=== PATIENT | female | born 1930 | race Caucasian/White ===

== ENCOUNTER 2016-11-20 11:17 | Inpatient (IN) | payer MEDICARE ==
[~2016-11-20] VITALS: Ht 154.9 cm; Wt 82.1 kg
[~2016-11-20 11:17] MED LIST: ASPI-482 PO; BUPR150T11 PO; CHOL500050 PO; DONE10TA34 PO; DOXE10CA PO; FENO160T PO; FERR325T72 PO; GABA-586 PO; HYDR-2762 PO; LOSA100T6 PO; OMEG500C PO; OMEP20CA5 PO; PARO20TA55 PO; TRIA1TAB2 PO
[2016-11-20 12:00] VITALS: BP 144/36
[2016-11-20] MEDS ORDERED: POTA10CA PO (12:24)
[2016-11-20] MEDS ORDERED: FURO40TA4 PO (12:24)
[2016-11-20] MEDS ORDERED: HYDROCODONE/APAP 7.5/325MG TABLET. PO PRN (13:00)
[2016-11-20] MEDS: TRIAMTERENE/HCTZ 37.5/25MG TABLET. PO SCH (13:30)
[2016-11-20] MEDS: POTASSIUM CHLORIDE 10 MEQ TABLET.ER. PO SCH (13:30)
[2016-11-20] MEDS: ASPIRIN ENTERIC COATED 81 MG TABLET.DR. PO SCH (13:30)
[2016-11-20] MEDS: FUROSEMIDE 40 MG TABLET PO SCH (13:30)
[2016-11-20] MEDS: PAROXETINE 20 MG TABLET. PO SCH (13:30)
[2016-11-20] MEDS: PANTOPRAZOLE 40 MG TABLET. PO SCH (13:30)
[2016-11-20] MEDS: LOSARTAN POTASSIUM 50 MG TABLET. PO SCH (13:30)
[2016-11-20] MEDS: GABAPENTIN 300 MG CAPSULE. PO SCH (13:30)
[2016-11-20] MEDS: ENOXAPARIN 30 MG/0.3 ML DISP.SYRIN. SQ SCH (14:22)
[2016-11-20 15:00] VITALS: BP 143/40
[2016-11-20 15:58] LABS: BASO # 0.1 x10^3/uL (0.0-0.2); BASO % 1 % (0-3); EOS % 8 % (0-3); HEMATOCRIT 34.9 % (36.0-47.0); HEMOGLOBIN 11.4 g/dL (12.0-15.5); LYMPH # 1.4 x10^3/uL (1.0-4.8); LYMPH % 18 % (24-48); MEAN CORPUSCULAR HEMOGLOBIN 30 pg (25-35); MEAN CORPUSCULAR HGB CONC 33 g/dL (31-37); MEAN CORPUSCULAR VOLUME 92 fL (79-100); MONO % 9 % (0-9); NEUT % 65 % (31-73); PLATELET COUNT 432 x10^3/uL (140-400); RED CELL DISTRIBUTION WIDTH 15.8 % (11.5-14.5); WHITE BLOOD COUNT 7.8 x10^3/uL (4.0-11.0)
[2016-11-20] MEDS ORDERED: DONEPEZIL HCL 10 MG TABLET. PO SCH (16:00)
[2016-11-20] MEDS ORDERED: OMEGA-3 FATTY ACIDS/FISH OIL 1,000 MG CAPSULE. PO SCH (16:00)
[2016-11-20 16:42] LABS: ALBUMIN 3.7 g/dL (3.4-5.0); ALBUMIN/GLOBULIN RATIO 1.1 (1.0-1.7); CALCIUM 8.7 mg/dL (8.5-10.1); GFR 23.6; PHOSPHORUS 5.4 mg/dL (2.6-4.7); POTASSIUM 3.9 mmol/L (3.5-5.1); TOTAL BILIRUBIN 0.6 mg/dL (0.2-1.0)
--- NOTE | 2016-11-20 17:23 | PDOC ---
VEE PALACIOS APRN 11/20/16 1723: Provider Note Provider Note Patient seen in clinic today for evaluation of recent onset of heart failure. Has been experiencing progressive recurrent falls of unclear etiology. Denies any syncope or palpitations. Falls appear to be near syncopal in nature as she feels legs give out. Upon exiting office today, patient experienced another episode and it was felt most appropriate that patient be admitted for further evaluation of near syncopal events. Patient directly admitted to hospital. Please see most recent office note in physical chart for full H and P. Assessment 1. Near syncope 2. Congestive heart failure 3. HTN 4. GRETTA with CKD Plan Obtain echocardiogram to noted LV function/assess presence of cardiac anomalies contributing to syncopal events Monitor telemetry. Consider event monitor upon discharge if echo unrevealing Consider nephrology evaluation of GRETTA CAROLINA BRIDGES MD 11/20/16 1837: Provider Note Provider Note Pt. seen and examined. See clinic note. Echo from today with normal LV function. No valvular disease. Tele thus far is negative. Check orthostatics. IVF. Will follow. VEE PALACIOS APRN Nov 20, 2016 17:23 CAROLINA BRIDGES MD Nov 20, 2016 18:37
[2016-11-20] MEDS ORDERED: IV NORMAL SALINE 1000ML BAG 1,000 ML IV ONE (18:00)
--- NOTE | 2016-11-20 18:48 | CARD ---
APPROVED REPORT EXAM: Two-dimensional and M-mode echocardiogram with Doppler and color Doppler. Other Information Quality : Good INDICATION Near Syncope 2D DIMENSIONS RVDd2.6 (2.9-3.5cm)Left Atrium(2D)3.5 (1.6-4.0cm) IVSd1.1 (0.7-1.1cm)Aortic Root(2D)2.9 (2.0-3.7cm) LVDd4.6 (3.9-5.9cm)LVOT Diameter2.0 (1.8-2.4cm) PWd1.0 (0.7-1.1cm)LVDs2.5 (2.5-4.0cm) FS (%) 30.0 %SV74.7 ml LVEF(%)60.0 (>50%) Aortic Valve AoV Peak Yimi.196.0cm/sAoV VTI42.0cm AO Peak GR.19.0mmHgLVOT Peak Yimi.110.2cm/s LVOT VTI 24.05cmAO Mean GR.9mmHg ARIELA (VMAX)1.06ea3NFX (VTI)1.70cm2 AI P 1/2 Chej694rv Mitral Valve MV E Tvgeowtc81.3cm/sMV DECEL DOEC738zb MV A Nfvxupki001.7cm/sMV [id number] E/A Ratio0.6MVA (PHT)1.88cm2 TDI E/Lateral E'11.3E/Medial E'12.5 Tricuspid Valve TR P. Uscfzvvq428lu/sRAP CCMXETAS9ugYj TR Peak Gr.68qgUuZMYE30ilNf Pulmonary Vein S1 Hnavragi37.2cm/sD2 Pjprmpnc41.8cm/s PVa mmfwjata286tyyg LEFT VENTRICLE The left ventricle is normal size. There is normal left ventricular wall thickness. The left ventricu lar systolic function is normal and the ejection fraction is within normal range. The Ejection Fracti on is 55-60%. There is normal LV segmental wall motion. Transmitral Doppler flow pattern is Grade I-a bnormal relaxation pattern. RIGHT VENTRICLE The right ventricle is normal size. The right ventricular systolic function is normal. ATRIA The left atrium size is normal. The right atrium size is normal. The interatrial septum is intact wit h no evidence for an atrial septal defect or patent foramen ovale as noted on 2-D or Doppler imaging. AORTIC VALVE The aortic valve is calcified and displays decreased opening. Doppler and Color Flow revealed mild ao rtic regurgitation. Calculated aortic valve area is 1.7 cm2 with maximum pressure gradient of 15 mmHg and mean pressure gradient of 9 mmHg. Doppler and color-flow analysis revealed mild aortic stenosis. MITRAL VALVE The mitral valve is thickened but opens well. There is no evidence of mitral valve prolapse. There is no mitral valve stenosis. Doppler and Color-flow revealed trace to mild mitral regurgitation. TRICUSPID VALVE The tricuspid valve is normal in structure and function. Doppler and Color Flow revealed mild tricusp id regurgitation. There is mild pulmonary hypertension. The PA pressure was estimated at 38 mmHg. The re is no tricuspid valve stenosis. PULMONIC VALVE The pulmonary valve is normal in structure and function. Doppler and Color Flow revealed mild pulmoni c valvular regurgitation. There is no pulmonic valvular stenosis. GREAT VESSELS The aortic root is normal in size. The ascending aorta is normal in size. The IVC is normal in size a nd collapses >50% with inspiration. PERICARDIAL EFFUSION There is no evidence of significant pericardial effusion. Critical Notification Critical Value: No <Conclusion> The left ventricular systolic function is normal and the ejection fraction is within normal range. Th e Ejection Fraction is 55-60%. There is normal LV segmental wall motion. No significant valvular disease to account for near syncope.
[2016-11-20 19:15] VITALS: BP 141/43
[2016-11-20 19:20] VITALS: BP_SYST 119; BP_SYST 137; BP_DIAS 38; BP_DIAS 47
[2016-11-20] MEDS: buPROPion SR 150 MG TABLET.SA PO SCH (20:33)
[2016-11-20] MEDS: DONEPEZIL HCL 10 MG TABLET. PO SCH (20:34)
[2016-11-20] MEDS: OMEGA-3 FATTY ACIDS/FISH OIL 1,000 MG CAPSULE. PO SCH (20:34)
[2016-11-20 23:29] VITALS: BP 119/39
[2016-11-21 03:30] VITALS: BP 132/57
[2016-11-21 05:28] LABS: BASO % 1 % (0-3); EOS % 7 % (0-3); HEMATOCRIT 33.8 % (36.0-47.0); LYMPH # 1.6 x10^3/uL (1.0-4.8); LYMPH % 21 % (24-48); MEAN CORPUSCULAR HEMOGLOBIN 30 pg (25-35); MEAN CORPUSCULAR HGB CONC 33 g/dL (31-37); MEAN CORPUSCULAR VOLUME 92 fL (79-100); MONO % 9 % (0-9); NEUT % 62 % (31-73); PLATELET COUNT 393 x10^3/uL (140-400); RED BLOOD COUNT 3.67 x10^6/uL (3.50-5.40); RED CELL DISTRIBUTION WIDTH 15.6 % (11.5-14.5); WHITE BLOOD COUNT 7.4 x10^3/uL (4.0-11.0)
[2016-11-21 05:48] LABS: CALCIUM 8.7 mg/dL (8.5-10.1); CREATININE 1.5 mg/dL (0.6-1.0); GFR 32.9; POTASSIUM 3.8 mmol/L (3.5-5.1)
[2016-11-21 07:40] VITALS: BP 137/68
--- NOTE | 2016-11-21 08:24 | RAD ---
EXAM: Chest, 2 views. HISTORY: Syncope. COMPARISON: 10/27/2016. FINDINGS: Frontal and lateral views of the chest are obtained. There is no infiltrate, effusion or pneumothorax. The heart is normal in size. There are calcified granulomas. IMPRESSION: No acute pulmonary finding.
--- NOTE | 2016-11-21 08:35 | PDOC ---
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 11/21/16 0835: CARDIO Progress Notes Date and Time Date of Service 11/21/16 Time of Evaluation 0850 Subjective Subjective: No Chest Pain, No shortness of breath, No Palpitations, Other ( complaints ) Vitals Vitals Vital Signs Date Time Temp Pulse Resp B/P Pulse Ox O2 Delivery O2 Flow Rate FiO2 11/21/16 07:40 97.8 69 18 137/68 93 Room Air 97.8 Weight Weight [ ] Input and Output Intake and Output Intake and Output 11/21/16 07:00 Intake Total 1500 ml Output Total 500 ml Balance 1000 ml Intake Oral 600 ml IV Total 900 ml Output Urine Total 500 ml # Voids 2 Laboratory Labs Laboratory Tests Test 11/20/16 15:45 11/21/16 04:10 White Blood Count 7.8x10^3/uL (4.0-11.0) 7.4x10^3/uL (4.0-11.0) Red Blood Count 3.80x10^6/uL (3.50-5.40) 3.67x10^6/uL (3.50-5.40) Hemoglobin 11.4g/dL (12.0-15.5) 11.0g/dL (12.0-15.5) Hematocrit 34.9% (36.0-47.0) 33.8% (36.0-47.0) Mean Corpuscular Volume 92fL (79-100) 92fL (79-100) Mean Corpuscular Hemoglobin 30pg (25-35) 30pg (25-35) Mean Corpuscular Hemoglobin Concent 33g/dL (31-37) 33g/dL (31-37) Red Cell Distribution Width 15.8% (11.5-14.5) 15.6% (11.5-14.5) Platelet Count 432x10^3/uL (140-400) 393x10^3/uL (140-400) Neutrophils (%) (Auto) 65% (31-73) 62% (31-73) Lymphocytes (%) (Auto) 18% (24-48) 21% (24-48) Monocytes (%) (Auto) 9% (0-9) 9% (0-9) Eosinophils (%) (Auto) 8% (0-3) 7% (0-3) Basophils (%) (Auto) 1% (0-3) 1% (0-3) Neutrophils # (Auto) 5.1x10^3uL (1.8-7.7) 4.5x10^3uL (1.8-7.7) Lymphocytes # (Auto) 1.4x10^3/uL (1.0-4.8) 1.6x10^3/uL (1.0-4.8) Monocytes # (Auto) 0.7x10^3/uL (0.0-1.1) 0.7x10^3/uL (0.0-1.1) Eosinophils # (Auto) 0.6x10^3/uL (0.0-0.7) 0.5x10^3/uL (0.0-0.7) Basophils # (Auto) 0.1x10^3/uL (0.0-0.2) 0.0x10^3/uL (0.0-0.2) Sodium Level 136mmol/L (136-145) 136mmol/L (136-145) Potassium Level 3.9mmol/L (3.5-5.1) 3.8mmol/L (3.5-5.1) Chloride Level 97mmol/L (98-107) 100mmol/L (98-107) Carbon Dioxide Level 27mmol/L (21-32) 26mmol/L (21-32) Anion Gap 12 (6-14) 10 (6-14) Blood Urea Nitrogen 56mg/dL (7-20) 49mg/dL (7-20) Creatinine 2.0mg/dL (0.6-1.0) 1.5mg/dL (0.6-1.0) Estimated GFR (Cockcroft-Gault) 23.6 32.9 BUN/Creatinine Ratio 28 (6-20) Glucose Level 126mg/dL (70-99) 109mg/dL (70-99) Calcium Level 8.7mg/dL (8.5-10.1) 8.7mg/dL (8.5-10.1) Phosphorus Level 5.4mg/dL (2.6-4.7) Magnesium Level 2.0mg/dL (1.8-2.4) Total Bilirubin 0.6mg/dL (0.2-1.0) Aspartate Amino Transf (AST/SGOT) 22U/L (15-37) Alanine Aminotransferase (ALT/SGPT) 20U/L (14-59) Alkaline Phosphatase 49U/L (46-116) Total Protein 7.0g/dL (6.4-8.2) Albumin 3.7g/dL (3.4-5.0) Albumin/Globulin Ratio 1.1 (1.0-1.7) Physical Exam HEENT: Neck Supple W Full Motion Chest: Symmetric LUNGS: Clear to Auscultation Heart: S1S2, RRR, no murmurs Abdomen: Soft N/T Extremities: 2+ Dorsalis Pedis, No Edema Neurology: alert, oriented, follow commands Assessment Assessment 1. Near syncope No acute events overnight Review of tele did not reveal any dysrhythmias No significant orthostasis noted. Echo with normal LV function. No valvular disease. Consider event monitor upon discharge 2. HTN controlled. continue current therapy 3. GRETTA with CKD improved with IV fluids 4. Possible thyroid goiter workup per PCP JAYME CODY MD 11/21/16 1155: CARDIO Progress Notes Assessment Assessment Patient seen and examined. Agree with REWORKER's assessment and plan. 2-D echo showed normal left ventricular systolic function. Telemetry did not show any significant arrhythmias. Carotid massage did not elicit evidence for carotid artery hypersensitivity syndrome. Plan for outpatient event monitor to rule out any significant arrhythmias. VEE PALACIOS APRN Nov 21, 2016 08:35 JAYME CODY MD Nov 21, 2016 11:55
--- NOTE | 2016-11-21 08:54 | RAD ---
EXAM: Carotid Doppler sonogram. HISTORY: Near syncope. TECHNIQUE: Doppler sonographic evaluation of the neck was performed and static images are submitted for review. FINDINGS: There is atherosclerotic plaque within the carotid bifurcations. The peak systolic velocity within the right common carotid artery is 91 cm/sec. The peak systolic velocities within the right proximal, mid and distal internal carotid artery are 57 cm/sec, 74 cm/sec, and 81 cm/sec, respectively. The peak systolic velocity within the left common carotid artery is 128 cm/sec. The peak systolic velocities within the left proximal, mid and distal internal carotid artery are 170 cm/sec, 106 cm/sec, and 101 cm/sec, respectively. There is normal antegrade flow within both vertebral arteries. There is no elevated peak systolic velocity within the left external carotid artery, measuring 164 cm/s. There is a heterogeneously enlarged thyroid containing multiple cysts and nodules, incompletely evaluated on the current exam. IMPRESSION: 1. Elevated peak systolic velocity within the proximal left ICA. Despite a normal left ICA to CCA ratio, this suggests 50-69% stenosis. 2. Elevated peak systolic velocity within the left ECA, suggesting hemostatically significant stenosis. 3. Heterogeneously enlarged thyroid containing multiple cysts and nodules, likely a goiter. This incompletely evaluated on the current exam. PQRS Statement: NASCET criteria were utilized for this exam.
[2016-11-21] MEDS: ASPIRIN ENTERIC COATED 81 MG TABLET.DR. PO SCH (08:59)
[2016-11-21] MEDS: FERROUS SULFATE 325 MG TABLET PO SCH (08:59)
[2016-11-21] MEDS: FENOFIBRATE,MICRONIZED 134 MG CAPSULE PO SCH (09:01)
[2016-11-21] MEDS: FUROSEMIDE 40 MG TABLET PO SCH (09:01)
[2016-11-21] MEDS: POTASSIUM CHLORIDE 10 MEQ TABLET.ER. PO SCH (09:01)
[2016-11-21] MEDS: PAROXETINE 20 MG TABLET. PO SCH (09:01)
[2016-11-21] MEDS: LOSARTAN POTASSIUM 50 MG TABLET. PO SCH (09:02)
[2016-11-21] MEDS: TRIAMTERENE/HCTZ 37.5/25MG TABLET. PO SCH (09:02)
[2016-11-21] MEDS: GABAPENTIN 300 MG CAPSULE. PO SCH (09:03)
[2016-11-21] MEDS: buPROPion SR 150 MG TABLET.SA PO SCH ×2 (09:03→21:06)
[2016-11-21] MEDS: PANTOPRAZOLE 40 MG TABLET. PO SCH (09:03)
[2016-11-21 10:20] VITALS: BP 141/62
--- NOTE | 2016-11-21 11:13 | PDOC ---
PROGRESS NOTES Subjective Subjective Patient without complaint, denies pain. Denies lightheadedness (at rest). Objective Objective Vital Signs Date Time Temp Pulse Resp B/P Pulse Ox O2 Delivery O2 Flow Rate FiO2 11/21/16 10:20 98.0 73 19 141/62 93 Room Air 98.0 Intake and Output 11/21/16 07:00 Intake Total 1500 ml Output Total 500 ml Balance 1000 ml Intake Oral 600 ml IV Total 900 ml Output Urine Total 500 ml # Voids 2 Physical Exam Abdomen: Normal bowel sounds, Soft, No tenderness Heart: Regular rate Extremities: No edema General: Alert (oriented to person and place), No acute distress Lungs: Clear to auscultation Assessment Assessment Problems Medical Problems: (1) Vasovagal near syncope Status: Acute Plan Plan of Care 1. Near-syncope - patient with significant orthostasis on exam by PT this morning. Has already received BP meds and Lasix today, will discontinue and follow. Continue to monitor on telemetry. Cardiology following. 2. GRETTA with CKD III - lab with some improvement overnight with IVF. Creatinine close to baseline but BUN still elevated. Lasix d/c. Follow lab. 3. possible CHF - Echo at admission was basically WNL. No indication for Lasix at this time. CXR was clear. 4. memory loss - continue home meds and supportive care. 5. carotid stenosis - seen on carotid dopplers. Further eval as per Cardiology. 6. thyromegaly - TSH recently WNL on office lab. Thyroid U/S ordered. 7. HTN - orthostatic. Hold all meds for now and try resuming at lower dose if needed. Comment Review of Relevant I have reviewed the following items malika (where applicable) has been applied. Labs Laboratory Tests Test 11/20/16 15:45 11/21/16 04:10 White Blood Count 7.8x10^3/uL (4.0-11.0) 7.4x10^3/uL (4.0-11.0) Red Blood Count 3.80x10^6/uL (3.50-5.40) 3.67x10^6/uL (3.50-5.40) Hemoglobin 11.4g/dL (12.0-15.5) 11.0g/dL (12.0-15.5) Hematocrit 34.9% (36.0-47.0) 33.8% (36.0-47.0) Mean Corpuscular Volume 92fL (79-100) 92fL (79-100) Mean Corpuscular Hemoglobin 30pg (25-35) 30pg (25-35) Mean Corpuscular Hemoglobin Concent 33g/dL (31-37) 33g/dL (31-37) Red Cell Distribution Width 15.8% (11.5-14.5) 15.6% (11.5-14.5) Platelet Count 432x10^3/uL (140-400) 393x10^3/uL (140-400) Neutrophils (%) (Auto) 65% (31-73) 62% (31-73) Lymphocytes (%) (Auto) 18% (24-48) 21% (24-48) Monocytes (%) (Auto) 9% (0-9) 9% (0-9) Eosinophils (%) (Auto) 8% (0-3) 7% (0-3) Basophils (%) (Auto) 1% (0-3) 1% (0-3) Neutrophils # (Auto) 5.1x10^3uL (1.8-7.7) 4.5x10^3uL (1.8-7.7) Lymphocytes # (Auto) 1.4x10^3/uL (1.0-4.8) 1.6x10^3/uL (1.0-4.8) Monocytes # (Auto) 0.7x10^3/uL (0.0-1.1) 0.7x10^3/uL (0.0-1.1) Eosinophils # (Auto) 0.6x10^3/uL (0.0-0.7) 0.5x10^3/uL (0.0-0.7) Basophils # (Auto) 0.1x10^3/uL (0.0-0.2) 0.0x10^3/uL (0.0-0.2) Sodium Level 136mmol/L (136-145) 136mmol/L (136-145) Potassium Level 3.9mmol/L (3.5-5.1) 3.8mmol/L (3.5-5.1) Chloride Level 97mmol/L (98-107) 100mmol/L (98-107) Carbon Dioxide Level 27mmol/L (21-32) 26mmol/L (21-32) Anion Gap 12 (6-14) 10 (6-14) Blood Urea Nitrogen 56mg/dL (7-20) 49mg/dL (7-20) Creatinine 2.0mg/dL (0.6-1.0) 1.5mg/dL (0.6-1.0) Estimated GFR (Cockcroft-Gault) 23.6 32.9 BUN/Creatinine Ratio 28 (6-20) Glucose Level 126mg/dL (70-99) 109mg/dL (70-99) Calcium Level 8.7mg/dL (8.5-10.1) 8.7mg/dL (8.5-10.1) Phosphorus Level 5.4mg/dL (2.6-4.7) Magnesium Level 2.0mg/dL (1.8-2.4) Total Bilirubin 0.6mg/dL (0.2-1.0) Aspartate Amino Transf (AST/SGOT) 22U/L (15-37) Alanine Aminotransferase (ALT/SGPT) 20U/L (14-59) Alkaline Phosphatase 49U/L (46-116) Total Protein 7.0g/dL (6.4-8.2) Albumin 3.7g/dL (3.4-5.0) Albumin/Globulin Ratio 1.1 (1.0-1.7) Laboratory Tests Test 11/20/16 15:45 11/21/16 04:10 White Blood Count 7.8x10^3/uL (4.0-11.0) 7.4x10^3/uL (4.0-11.0) Red Blood Count 3.80x10^6/uL (3.50-5.40) 3.67x10^6/uL (3.50-5.40) Hemoglobin 11.4g/dL (12.0-15.5) 11.0g/dL (12.0-15.5) Hematocrit 34.9% (36.0-47.0) 33.8% (36.0-47.0) Mean Corpuscular Volume 92fL (79-100) 92fL (79-100) Mean Corpuscular Hemoglobin 30pg (25-35) 30pg (25-35) Mean Corpuscular Hemoglobin Concent 33g/dL (31-37) 33g/dL (31-37) Red Cell Distribution Width 15.8% (11.5-14.5) 15.6% (11.5-14.5) Platelet Count 432x10^3/uL (140-400) 393x10^3/uL (140-400) Neutrophils (%) (Auto) 65% (31-73) 62% (31-73) Lymphocytes (%) (Auto) 18% (24-48) 21% (24-48) Monocytes (%) (Auto) 9% (0-9) 9% (0-9) Eosinophils (%) (Auto) 8% (0-3) 7% (0-3) Basophils (%) (Auto) 1% (0-3) 1% (0-3) Neutrophils # (Auto) 5.1x10^3uL (1.8-7.7) 4.5x10^3uL (1.8-7.7) Lymphocytes # (Auto) 1.4x10^3/uL (1.0-4.8) 1.6x10^3/uL (1.0-4.8) Monocytes # (Auto) 0.7x10^3/uL (0.0-1.1) 0.7x10^3/uL (0.0-1.1) Eosinophils # (Auto) 0.6x10^3/uL (0.0-0.7) 0.5x10^3/uL (0.0-0.7) Basophils # (Auto) 0.1x10^3/uL (0.0-0.2) 0.0x10^3/uL (0.0-0.2) Sodium Level 136mmol/L (136-145) 136mmol/L (136-145) Potassium Level 3.9mmol/L (3.5-5.1) 3.8mmol/L (3.5-5.1) Chloride Level 97mmol/L (98-107) 100mmol/L (98-107) Carbon Dioxide Level 27mmol/L (21-32) 26mmol/L (21-32) Anion Gap 12 (6-14) 10 (6-14) Blood Urea Nitrogen 56mg/dL (7-20) 49mg/dL (7-20) Creatinine 2.0mg/dL (0.6-1.0) 1.5mg/dL (0.6-1.0) Estimated GFR (Cockcroft-Gault) 23.6 32.9 BUN/Creatinine Ratio 28 (6-20) Glucose Level 126mg/dL (70-99) 109mg/dL (70-99) Calcium Level 8.7mg/dL (8.5-10.1) 8.7mg/dL (8.5-10.1) Phosphorus Level 5.4mg/dL (2.6-4.7) Magnesium Level 2.0mg/dL (1.8-2.4) Total Bilirubin 0.6mg/dL (0.2-1.0) Aspartate Amino Transf (AST/SGOT) 22U/L (15-37) Alanine Aminotransferase (ALT/SGPT) 20U/L (14-59) Alkaline Phosphatase 49U/L (46-116) Total Protein 7.0g/dL (6.4-8.2) Albumin 3.7g/dL (3.4-5.0) Albumin/Globulin Ratio 1.1 (1.0-1.7) Medications Current Medications Aspirin (Ecotrin) 81 mg DAILY08 PO Last administered on 11/21/16 08:59; Start 11/20/16 at 13:30 Bupropion HCl (Wellbutrin Sr) 75 mg BID PO Last administered on 11/21/16 09:03 ; Start 11/20/16 at 21:00 Donepezil HCl (Aricept) 10 mg DAILY16 PO ; Start 11/20/16 at 16:00; Stop at 16:00; Status DC Ferrous Sulfate (Feosol) 325 mg DAILYWBKFT PO Last administered on 11/21/16 08 :59; Start 11/21/16 at 08:00 Furosemide (Lasix) 40 mg DAILY PO Last administered on 11/21/16 09:01; Start 11/20/16 at 13:30 Gabapentin (Neurontin) 300 mg DAILY08 PO Last administered on 11/21/16 09:03; Start 11/20/16 at 13:30 Acetaminophen/ Hydrocodone Bitart (Lortab 7.5/325) 1 tab PRN Q6HRS PRN PO PAIN ; Start 11/20/16 at 13:00 Paroxetine HCl (Paxil) 20 mg DAILY08 PO Last administered on 11/21/16 09:01; Start 11/20/16 at 13:30 Triamterene/HCTZ (Maxzide 37.5/ 25mg) 1 tab DAILY08 PO Last administered on 09:02; Start 11/20/16 at 13:30 Ergocalciferol (Vitamin D2) 50,000 unit WEEKLY PO ; Start 11/27/16 at 09:00 Fenofibrate (Lofibra) 134 mg DAILY PO Last administered on 11/21/16 09:01; Start 11/21/16 at 09:00 Losartan Potassium (Cozaar) 50 mg DAILY08 PO Last administered on 11/21/16 09: 02; Start 11/20/16 at 13:30 Fish Oil (Fish Oil) 2,000 mg DAILY16 PO ; Start 11/20/16 at 16:00; Stop at 16:00; Status DC Pantoprazole Sodium (Protonix) 40 mg DAILYAC PO Last administered on 11/21/16 09:03; Start 11/20/16 at 13:30 Potassium Chloride (Klor-Con) 10 meq DAILYWBKFT PO Last administered on 09:01; Start 11/20/16 at 13:30 Enoxaparin Sodium (Lovenox 30mg Syringe) 30 mg Q24H SQ Last administered on 14:22; Start 11/20/16 at 14:00 Donepezil HCl (Aricept) 10 mg HS PO Last administered on 11/20/16 20:34; Start 11/20/16 at 21:00 Fish Oil 2000 mg 2,000 mg HS PO Last administered on 11/20/16 20:34; Start at 21:00 Sodium Chloride (Iv Sodium Chloride 0.9% 1000ml Bag) 1,000 ml @ 75 mls/hr 1X ONCE IV Last administered on 1/27/17at 18:04; Start 11/20/16 at 18:00; Stop at 07:19; Status DC Active Scripts Active Feosol (Ferrous Sulfate) 325 Mg Tablet 325 Mg PO DAILYWBKFT Bupropion Hcl Sr (Bupropion Hcl) 150 Mg Tablet.er 75 Mg PO BID Reported Potassium Chloride 10 Meq Capsule.er 10 Meq PO DAILY Furosemide 40 Mg Tablet 1 Tab PO DAILY Hydrocodone-Apap 7.5-325 (Hydrocodone Bit/Acetaminophen) 1 Each Tablet 1 Tab PO PRN Q6HRS PRN Fish Oil (Fords-3 Fatty Acids) 500 Mg Capsule. 2 Cap PO DAILY16 Aricept (Donepezil Hcl) 10 Mg Tablet 10 Mg PO DAILY16 Vitamin D3 (Cholecalciferol (Vitamin D3)) 50,000 Unit Capsule 50,000 Unit PO WEEKLY WEDNESDAY Aspir 81 (Aspirin) 81 Mg Tablet. 81 Mg PO DAILY08 Losartan Potassium 100 Mg Tablet 50 Mg PO DAILY08 Prilosec (Omeprazole) 20 Mg Capsule. 40 Mg PO DAILY08 Paxil (Paroxetine Hcl) 20 Mg Tablet 20 Mg PO DAILY08 Gabapentin 300 Mg Capsule 300 Mg PO DAILY08 Fenofibrate 160 Mg Tablet 160 Mg PO DAILY08 Vitals/I & O Vital Sign - Last 24 Hours 11/20/16 11/20/16 11/20/16 11/20/16 12:00 15:00 19:15 19:20 Temp 96.3 96.8 97.9 96.3 96.8 97.9 Pulse 74 65 76 77 Resp 16 16 19 B/P 144/36 143/40 141/43 137/47 Pulse Ox 96 97 93 O2 Delivery Room Air Room Air Room Air 11/20/16 11/20/16 11/21/16 11/21/16 19:20 23:29 03:30 07:40 Temp 97.7 98.0 97.8 97.7 98.0 97.8 Pulse 77 77 77 69 Resp 18 18 18 B/P 119/38 119/39 132/57 137/68 Pulse Ox 92 91 93 O2 Delivery Room Air Room Air Room Air 11/21/16 11/21/16 09:02 10:20 Temp 98.0 98.0 Pulse 69 73 Resp 19 B/P 137/68 141/62 Pulse Ox 93 O2 Delivery Room Air Intake and Output 11/20/16 11/20/16 11/21/16 15:00 23:00 07:00 Intake Total 1500 ml Output Total 200 ml 300 ml Balance -200 ml 1200 ml MACEY HURTADO MD Nov 21, 2016 11:13
[2016-11-21] MEDS: FLUTICASONE 50MCG/NASAL SPRAY 16GM BOTTLE. NS SCH (12:00)
--- NOTE | 2016-11-21 12:08 | RAD ---
EXAM: Thyroid sonogram. HISTORY: Goiter. TECHNIQUE: Sonographic imaging of the thyroid was performed. COMPARISON: Carotid Doppler sonogram dated 11/20/2016. FINDINGS: The right thyroid lobe measures 6.5 x 2.7 x 3.5 cm and extends substernally, limiting evaluation. The left thyroid lobe measures 3.8 x 1.6 x 1.4 cm. This mass measures 9 mm. The thyroid parenchyma is diffusely heterogeneous. There is a dominant hypoechoic nodule within the mid right thyroid lobe measuring 3.2 x 2.7 x 2.7 cm. There is a similar smaller nodule within the inferior right thyroid lobe measuring 1.8 x 1.7 x 1.6 cm. There are several small hypoechoic nodules and simple and complex cysts within the left thyroid lobe. The largest left-sided nodule is hypoechoic and measures 7 mm. IMPRESSION: 1. Enlarged right thyroid lobe extending substernally and containing dominant solid nodules measuring 3.2 cm and 1.8 cm. 2. Several subcentimeter nodules and cysts within the left thyroid lobe, the largest of which measures 7 mm. 3. Diffusely heterogeneous thyroid parenchyma.
[2016-11-21 14:25] VITALS: BP 136/61
[2016-11-21] MEDS: BENZONATATE 100 MG CAPSULE. PO PRN (17:54)
[2016-11-21] MEDS: ENOXAPARIN 30 MG/0.3 ML DISP.SYRIN. SQ SCH (17:55)
--- NOTE | 2016-11-21 18:29 | HP ---
ADMIT DATE: 11/20/2016 CHIEF COMPLAINT: Near syncope. HISTORY OF PRESENT ILLNESS: The patient is an 86-year-old female who was referred to Dr. Odell for evaluation of possible congestive heart failure. She was seen in his office on the day of admission and some further evaluation was planned. However, she had a near syncopal episode while leaving his office. She was therefore directly admitted to the hospital for closer monitoring and further evaluation. PAST MEDICAL HISTORY: Hypertension, chronic kidney disease, memory loss, chronic anxiety, GERD, hyperlipidemia, spinal stenosis with chronic back pain, osteoarthritis. PAST SURGICAL HISTORY: Knee replacement, partial hysterectomy. ALLERGIES: The patient has no known drug allergies. HOME MEDICATIONS: Aspirin 81 mg daily, bupropion 75 mg b.i.d., vitamin D 50,000 units weekly, donepezil 10 mg daily, fenofibrate 160 mg daily, iron 325 mg daily, furosemide 40 mg daily, gabapentin 300 mg daily, hydrocodone p.r.n., losartan 50 mg daily, omeprazole 40 mg daily, paroxetine 20 mg daily, and potassium 10 mEq daily. FAMILY HISTORY: Noncontributory. SOCIAL HISTORY: The patient is . She usually lives at [facility], [place]; however, most recently she has been staying with her daughter due to her frequent falls. She has never smoked cigarettes. REVIEW OF SYSTEMS: This is mainly obtained from the chart as the patient does have some memory loss. She has not had fever or chills. She notes some postnasal drainage recently, but no sinus pain. She denies chest pain or palpitations. She has had a mild cough, but has not had any shortness of breath. She denies abdominal pain, nausea, vomiting, or problems with her bowels. She denies dysuria or increased urinary frequency. PHYSICAL EXAMINATION: GENERAL: The patient is alert and oriented to person and place. She is resting comfortably in bed in no acute distress. HEENT: PERRL, EOMI, sclerae clear. Sinuses are nontender. Oropharynx: Mucous membranes somewhat dry. NECK: Supple, without lymphadenopathy or thyromegaly. CHEST: Clear to auscultation. CARDIOVASCULAR: Regular rhythm without murmur. ABDOMEN: Soft, nontender, normoactive bowel sounds are present. EXTREMITIES: Without edema. ASSESSMENT AND PLAN: 1. Near syncope. The patient did have significant orthostasis on exam by physical therapy this morning. She has unfortunately already received her blood pressure medicines and Lasix today. These have now been discontinued, and we will follow her response to this. We will continue to monitor on telemetry. She has remained in sinus rhythm since admission. Cardiology is also following. 2. Acute kidney injury with chronic kidney disease stage III. The patient's creatinine was elevated to 2.0 at admission with a BUN of 56. This is probably due to the Lasix that she was started on recently due to some complaints of leg swelling and shortness of breath. She received 1 liter of IV fluids at admission and her lab has mildly improved this morning with a BUN of 49 and creatinine of 1.5. The creatinine is close to her baseline now, BUN is still elevated. We have discontinued the Lasix and oral fluids are to be encouraged. We will check the lab tomorrow. 3. Possible congestive heart failure. Echocardiogram at admission are basically within normal limits with preserved ejection fraction of 50-55%. No significant valvular disease. Chest x-ray at admission was clear. There is no good indication for continuing Lasix at this time. 4. Memory loss. This appears relatively stable, continue home medications and supportive care. 5. Carotid stenosis. This was noted on carotid Dopplers that were done at admission. Further evaluation as per cardiology's recommendations. Continue aspirin daily. 6. Thyromegaly. An enlarged thyroid was partially seen on the echocardiogram. The patient's TSH was recently within normal limits on our office lab. The thyroid is not grossly enlarged on exam. A thyroid ultrasound has been ordered. 7. Hypertension. The patient is significantly orthostatic as discussed above. We will hold all of her blood pressure medicines starting tomorrow and follow this. MACEY HURTADO MD DR: KAMERON/shin JOB#: [id number] / [id number] PUNEET
[2016-11-21 19:05] VITALS: BP 107/54
[2016-11-21 19:27] LABS: BILIRUBIN,URINE NEGATIVE (NEG); GLUCOSE,URINE NEGATIVE (NEG); NITRITE,URINE NEGATIVE (NEG); PH,URINE 6.5; PROTEIN,URINE NEGATIVE (NEG-TRACE); UROBILINOGEN,URINE 0.2 mg/dL (0.2 mg/dL)
[2016-11-21 19:34] LABS: BACTERIA,URINE FEW /HPF (0-FEW); RBC,URINE 0 /HPF (0-2); SQUAMOUS EPITHELIAL CELL,UR FEW /LPF; WBC,URINE 0 /HPF (0-4)
[2016-11-21] MEDS: DONEPEZIL HCL 10 MG TABLET. PO SCH (21:07)
[2016-11-21] MEDS: OMEGA-3 FATTY ACIDS/FISH OIL 1,000 MG CAPSULE. PO SCH (21:07)
[2016-11-21 23:00] VITALS: BP 127/53
[2016-11-22] VITALS (7 sets, daily range): BP systolic 96–156; BP diastolic 53–69
[2016-11-22 06:14] LABS: CALCIUM 8.7 mg/dL (8.5-10.1); CREATININE 1.5 mg/dL (0.6-1.0); GFR 32.9; POTASSIUM 3.6 mmol/L (3.5-5.1)
[2016-11-22] MEDS: FENOFIBRATE,MICRONIZED 134 MG CAPSULE PO SCH (09:23)
[2016-11-22] MEDS: BENZONATATE 100 MG CAPSULE. PO PRN (09:23)
[2016-11-22] MEDS: PANTOPRAZOLE 40 MG TABLET. PO SCH (09:24)
[2016-11-22] MEDS: GABAPENTIN 300 MG CAPSULE. PO SCH (09:24)
[2016-11-22] MEDS: buPROPion SR 150 MG TABLET.SA PO SCH ×2 (09:24→20:43)
[2016-11-22] MEDS: FERROUS SULFATE 325 MG TABLET PO SCH (09:24)
[2016-11-22] MEDS: ASPIRIN ENTERIC COATED 81 MG TABLET.DR. PO SCH (09:24)
[2016-11-22] MEDS: PAROXETINE 20 MG TABLET. PO SCH (09:24)
[2016-11-22] MEDS: FLUTICASONE 50MCG/NASAL SPRAY 16GM BOTTLE. NS SCH (09:27)
--- NOTE | 2016-11-22 13:32 | PDOC ---
PROGRESS NOTES Subjective Subjective Patient states she feels better, no other complaints. Objective Objective Vital Signs Date Time Temp Pulse Resp B/P Pulse Ox O2 Delivery O2 Flow Rate FiO2 11/22/16 10:41 97.6 70 18 117/56 93 Room Air 97.6 Intake and Output 11/22/16 07:00 Intake Total 970 ml Output Total 1200 ml Balance -230 ml Intake Oral 970 ml Output Urine Total 1200 ml # Voids 3 # Bowel Movements 4 Physical Exam Abdomen: Normal bowel sounds, Soft, No tenderness Heart: Regular rate Extremities: No edema General: Alert, No acute distress Lungs: Clear to auscultation Assessment Assessment Problems Medical Problems: (1) Vasovagal near syncope Status: Acute Plan Plan of Care 1. Syncope with orthostasis - VS are improving off BP meds and Lasix. Continue to hold meds and check orthostatics. PT pending. 2. GRETTA with CKD - BUN still elevated, will give IVF overnight and check lab in AM. Patient encouraged increased po fluids. 3. Carotid stenosis - continue ASA, further tx as per Cardiology. 4. thyromegaly - U/S shows enlarged thyroid with multiple cysts. Thyroid scan ordered for tomorrow. TSH was WNL on recent lab at our office. 5. memory loss - stable, continue supportive care, appears at baseline. Comment Review of Relevant I have reviewed the following items malika (where applicable) has been applied. Labs Laboratory Tests Test 11/20/16 15:45 11/21/16 04:10 11/21/16 10:18 11/21/16 19:18 White Blood Count 7.8x10^3/uL (4.0-11.0) 7.4x10^3/uL (4.0-11.0) Red Blood Count 3.80x10^6/uL (3.50-5.40) 3.67x10^6/uL (3.50-5.40) Hemoglobin 11.4g/dL (12.0-15.5) 11.0g/dL (12.0-15.5) Hematocrit 34.9% (36.0-47.0) 33.8% (36.0-47.0) Mean Corpuscular Volume 92fL (79-100) 92fL (79-100) Mean Corpuscular Hemoglobin 30pg (25-35) 30pg (25-35) Mean Corpuscular Hemoglobin Concent 33g/dL (31-37) 33g/dL (31-37) Red Cell Distribution Width 15.8% (11.5-14.5) 15.6% (11.5-14.5) Platelet Count 432x10^3/uL (140-400) 393x10^3/uL (140-400) Neutrophils (%) (Auto) 65% (31-73) 62% (31-73) Lymphocytes (%) (Auto) 18% (24-48) 21% (24-48) Monocytes (%) (Auto) 9% (0-9) 9% (0-9) Eosinophils (%) (Auto) 8% (0-3) 7% (0-3) Basophils (%) (Auto) 1% (0-3) 1% (0-3) Neutrophils # (Auto) 5.1x10^3uL (1.8-7.7) 4.5x10^3uL (1.8-7.7) Lymphocytes # (Auto) 1.4x10^3/uL (1.0-4.8) 1.6x10^3/uL (1.0-4.8) Monocytes # (Auto) 0.7x10^3/uL (0.0-1.1) 0.7x10^3/uL (0.0-1.1) Eosinophils # (Auto) 0.6x10^3/uL (0.0-0.7) 0.5x10^3/uL (0.0-0.7) Basophils # (Auto) 0.1x10^3/uL (0.0-0.2) 0.0x10^3/uL (0.0-0.2) Sodium Level 136mmol/L (136-145) 136mmol/L (136-145) Potassium Level 3.9mmol/L (3.5-5.1) 3.8mmol/L (3.5-5.1) Chloride Level 97mmol/L (98-107) 100mmol/L (98-107) Carbon Dioxide Level 27mmol/L (21-32) 26mmol/L (21-32) Anion Gap 12 (6-14) 10 (6-14) Blood Urea Nitrogen 56mg/dL (7-20) 49mg/dL (7-20) Creatinine 2.0mg/dL (0.6-1.0) 1.5mg/dL (0.6-1.0) Estimated GFR (Cockcroft-Gault) 23.6 32.9 BUN/Creatinine Ratio 28 (6-20) Glucose Level 126mg/dL (70-99) 109mg/dL (70-99) Calcium Level 8.7mg/dL (8.5-10.1) 8.7mg/dL (8.5-10.1) Phosphorus Level 5.4mg/dL (2.6-4.7) Magnesium Level 2.0mg/dL (1.8-2.4) Total Bilirubin 0.6mg/dL (0.2-1.0) Aspartate Amino Transf (AST/SGOT) 22U/L (15-37) Alanine Aminotransferase (ALT/SGPT) 20U/L (14-59) Alkaline Phosphatase 49U/L (46-116) Total Protein 7.0g/dL (6.4-8.2) Albumin 3.7g/dL (3.4-5.0) Albumin/Globulin Ratio 1.1 (1.0-1.7) Nasal Screen MRSA (PCR) Negative (Negative) Urine Collection Type Unknown Urine Color Yellow Urine Clarity Clear Urine pH 6.5 Urine Specific [place] <=1.005 Urine Protein Negativemg/dL (NEG-TRACE) Urine Glucose (UA) Negativemg/dL (NEG) Urine Ketones (Stick) Negativemg/dL (NEG) Urine Blood Negative (NEG) Urine Nitrite Negative (NEG) Urine Bilirubin Negative (NEG) Urine Urobilinogen Dipstick 0.2mg/dL (0.2 mg/dL) Urine Leukocyte Esterase Negative (NEG) Urine RBC 0/HPF (0-2) Urine WBC 0/HPF (0-4) Urine Squamous Epithelial Cells Few/LPF Urine Bacteria Few/HPF (0-FEW) Test 11/22/16 05:15 Sodium Level 135mmol/L (136-145) Potassium Level 3.6mmol/L (3.5-5.1) Chloride Level 99mmol/L (98-107) Carbon Dioxide Level 27mmol/L (21-32) Anion Gap 9 (6-14) Blood Urea Nitrogen 43mg/dL (7-20) Creatinine 1.5mg/dL (0.6-1.0) Estimated GFR (Cockcroft-Gault) 32.9 Glucose Level 108mg/dL (70-99) Calcium Level 8.7mg/dL (8.5-10.1) Laboratory Tests Test 11/21/16 19:18 11/22/16 05:15 Urine Collection Type Unknown Urine Color Yellow Urine Clarity Clear Urine pH 6.5 Urine Specific [place] <=1.005 Urine Protein Negativemg/dL (NEG-TRACE) Urine Glucose (UA) Negativemg/dL (NEG) Urine Ketones (Stick) Negativemg/dL (NEG) Urine Blood Negative (NEG) Urine Nitrite Negative (NEG) Urine Bilirubin Negative (NEG) Urine Urobilinogen Dipstick 0.2mg/dL (0.2 mg/dL) Urine Leukocyte Esterase Negative (NEG) Urine RBC 0/HPF (0-2) Urine WBC 0/HPF (0-4) Urine Squamous Epithelial Cells Few/LPF Urine Bacteria Few/HPF (0-FEW) Sodium Level 135mmol/L (136-145) Potassium Level 3.6mmol/L (3.5-5.1) Chloride Level 99mmol/L (98-107) Carbon Dioxide Level 27mmol/L (21-32) Anion Gap 9 (6-14) Blood Urea Nitrogen 43mg/dL (7-20) Creatinine 1.5mg/dL (0.6-1.0) Estimated GFR (Cockcroft-Gault) 32.9 Glucose Level 108mg/dL (70-99) Calcium Level 8.7mg/dL (8.5-10.1) Medications Current Medications Aspirin (Ecotrin) 81 mg DAILY08 PO Last administered on 11/22/16 09:24; Start 11/20/16 at 13:30 Bupropion HCl (Wellbutrin Sr) 75 mg BID PO Last administered on 11/22/16 09:24 ; Start 11/20/16 at 21:00 Donepezil HCl (Aricept) 10 mg DAILY16 PO ; Start 11/20/16 at 16:00; Stop at 16:00; Status DC Ferrous Sulfate (Feosol) 325 mg DAILYWBKFT PO Last administered on 11/22/16 09 :24; Start 11/21/16 at 08:00 Furosemide (Lasix) 40 mg DAILY PO Last administered on 11/21/16 09:01; Start 11/20/16 at 13:30; Stop 11/21/16 at 10:53; Status DC Gabapentin (Neurontin) 300 mg DAILY08 PO Last administered on 11/22/16 09:24; Start 11/20/16 at 13:30 Acetaminophen/ Hydrocodone Bitart (Lortab 7.5/325) 1 tab PRN Q6HRS PRN PO PAIN ; Start 11/20/16 at 13:00 Paroxetine HCl (Paxil) 20 mg DAILY08 PO Last administered on 11/22/16 09:24; Start 11/20/16 at 13:30 Triamterene/HCTZ (Maxzide 37.5/ 25mg) 1 tab DAILY08 PO Last administered on 09:02; Start 11/20/16 at 13:30; Stop 11/21/16 at 10:53; Status DC Ergocalciferol (Vitamin D2) 50,000 unit WEEKLY PO ; Start 11/27/16 at 09:00 Fenofibrate (Lofibra) 134 mg DAILY PO Last administered on 11/22/16 09:23; Start 11/21/16 at 09:00 Losartan Potassium (Cozaar) 50 mg DAILY08 PO Last administered on 11/21/16 09: 02; Start 11/20/16 at 13:30; Stop 11/21/16 at 10:53; Status DC Fish Oil (Fish Oil) 2,000 mg DAILY16 PO ; Start 11/20/16 at 16:00; Stop at 16:00; Status DC Pantoprazole Sodium (Protonix) 40 mg DAILYAC PO Last administered on 11/22/16 09:24; Start 11/20/16 at 13:30 Potassium Chloride (Klor-Con) 10 meq DAILYWBKFT PO Last administered on 09:01; Start 11/20/16 at 13:30; Stop 11/21/16 at 10:53; Status DC Enoxaparin Sodium (Lovenox 30mg Syringe) 30 mg Q24H SQ Last administered on 17:55; Start 11/20/16 at 14:00 Donepezil HCl (Aricept) 10 mg HS PO Last administered on 11/21/16 21:07; Start 11/20/16 at 21:00 Fish Oil 2000 mg 2,000 mg HS PO Last administered on 11/21/16 21:07; Start at 21:00 Sodium Chloride (Iv Sodium Chloride 0.9% 1000ml Bag) 1,000 ml @ 75 mls/hr 1X ONCE IV Last administered on 11/20/16 18:04; Start 11/20/16 at 18:00; Stop at 07:19; Status DC Fluticasone Propionate (Flonase) 2 spray DAILY NS Last administered on 09:27; Start 11/21/16 at 12:00 Benzonatate (Tessalon Perle) 200 mg PRN TID PRN PO cough Last administered on 09:23; Start 11/21/16 at 12:00 Active Scripts Active Feosol (Ferrous Sulfate) 325 Mg Tablet 325 Mg PO DAILYWBKFT Bupropion Hcl Sr (Bupropion Hcl) 150 Mg Tablet.er 75 Mg PO BID Reported Potassium Chloride 10 Meq Capsule.er 10 Meq PO DAILY Furosemide 40 Mg Tablet 1 Tab PO DAILY Hydrocodone-Apap 7.5-325 (Hydrocodone Bit/Acetaminophen) 1 Each Tablet 1 Tab PO PRN Q6HRS PRN Fish Oil ([place]-3 Fatty Acids) 500 Mg Capsule. 2 Cap PO DAILY16 Aricept (Donepezil Hcl) 10 Mg Tablet 10 Mg PO DAILY16 Vitamin D3 (Cholecalciferol (Vitamin D3)) 50,000 Unit Capsule 50,000 Unit PO WEEKLY WEDNESDAY Aspir 81 (Aspirin) 81 Mg Tablet. 81 Mg PO DAILY08 Losartan Potassium 100 Mg Tablet 50 Mg PO DAILY08 Prilosec (Omeprazole) 20 Mg Capsule. 40 Mg PO DAILY08 Paxil (Paroxetine Hcl) 20 Mg Tablet 20 Mg PO DAILY08 Gabapentin 300 Mg Capsule 300 Mg PO DAILY08 Fenofibrate 160 Mg Tablet 160 Mg PO DAILY08 Vitals/I & O Vital Sign - Last 24 Hours 11/21/16 11/21/16 11/21/16 11/22/16 14:25 19:05 23:00 02:39 Temp 97.8 98.4 97.8 97.8 98.4 97.8 Pulse 73 76 71 84 Resp 20 20 22 20 B/P 136/61 107/54 127/53 142/58 Pulse Ox 94 94 91 95 O2 Delivery Room Air Room Air Room Air Room Air 11/22/16 11/22/16 11/22/16 07:45 08:00 10:41 Temp 97.6 97.6 97.6 97.6 Pulse 65 70 Resp 18 18 B/P 145/61 117/56 Pulse Ox 93 93 O2 Delivery Room Air Room Air Room Air Intake and Output 11/21/16 11/21/16 11/22/16 15:00 23:00 07:00 Intake Total 420 ml 550 ml Output Total 1000 ml 200 ml Balance -580 ml 350 ml MACEY HURTADO MD Nov 22, 2016 13:32
[2016-11-22] MEDS: IV NORMAL SALINE 1000ML BAG 1,000 ML IV SCH (15:12)
[2016-11-22] MEDS: ENOXAPARIN 30 MG/0.3 ML DISP.SYRIN. SQ SCH (15:13)
[2016-11-22] MEDS: DONEPEZIL HCL 10 MG TABLET. PO SCH (20:43)
[2016-11-22] MEDS: OMEGA-3 FATTY ACIDS/FISH OIL 1,000 MG CAPSULE. PO SCH (20:43)
[2016-11-23] VITALS (8 sets, daily range): BP systolic 112–151; BP diastolic 42–76
[2016-11-23] MEDS: IV NORMAL SALINE 1000ML BAG 1,000 ML IV SCH ×2 (02:19→10:00)
[2016-11-23 05:52] LABS: CALCIUM 8.5 mg/dL (8.5-10.1); CREATININE 1.3 mg/dL (0.6-1.0); GFR 38.8; POTASSIUM 3.4 mmol/L (3.5-5.1)
[2016-11-23 06:13] LABS: FREE T4 1.26 ng/dL (0.76-1.46)
[2016-11-23] MEDS: ASPIRIN ENTERIC COATED 81 MG TABLET.DR. PO SCH (09:41)
[2016-11-23] MEDS: FERROUS SULFATE 325 MG TABLET PO SCH (09:42)
[2016-11-23] MEDS: GABAPENTIN 300 MG CAPSULE. PO SCH (09:42)
[2016-11-23] MEDS: PAROXETINE 20 MG TABLET. PO SCH (09:42)
[2016-11-23] MEDS: FENOFIBRATE,MICRONIZED 134 MG CAPSULE PO SCH (09:42)
[2016-11-23] MEDS: buPROPion SR 150 MG TABLET.SA PO SCH ×2 (09:42→20:35)
[2016-11-23] MEDS: PANTOPRAZOLE 40 MG TABLET. PO SCH (09:42)
[2016-11-23] MEDS: FLUTICASONE 50MCG/NASAL SPRAY 16GM BOTTLE. NS SCH (09:43)
--- NOTE | 2016-11-23 12:19 | PDOC ---
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 11/23/16 1219: CARDIO Progress Notes Date and Time Date of Service 11/23/16 Subjective Subjective: No Chest Pain, No shortness of breath, No Palpitations, Other (no complaints, ready to go home) Vitals Vitals Vital Signs Date Time Temp Pulse Resp B/P Pulse Ox O2 Delivery O2 Flow Rate FiO2 11/23/16 11:01 72 18 112/42 11/23/16 10:57 97 Room Air 11/23/16 10:50 97.7 97.7 Weight Weight [ ] Input and Output Intake and Output Intake and Output 11/23/16 07:00 Intake Total 2200 ml Output Total 1425 ml Balance 775 ml Intake Oral 1000 ml IV Total 1200 ml Output Urine Total 1425 ml Laboratory Labs Laboratory Tests Test 11/23/16 04:00 Sodium Level 139mmol/L (136-145) Potassium Level 3.4mmol/L (3.5-5.1) Chloride Level 103mmol/L (98-107) Carbon Dioxide Level 26mmol/L (21-32) Anion Gap 10 (6-14) Blood Urea Nitrogen 37mg/dL (7-20) Creatinine 1.3mg/dL (0.6-1.0) Estimated GFR (Cockcroft-Gault) 38.8 Glucose Level 102mg/dL (70-99) Calcium Level 8.5mg/dL (8.5-10.1) Thyroid Stimulating Hormone (TSH) 0.464uIU/mL (0.358-3.74) Free Thyroxine 1.26ng/dL (0.76-1.46) Physical Exam HEENT: Neck Supple W Full Motion Chest: Symmetric LUNGS: Clear to Auscultation Heart: S1S2, RRR, no murmurs Abdomen: Soft N/T Extremities: 2+ Dorsalis Pedis, No Edema Neurology: alert, oriented, follow commands Assessment Assessment 1. Near syncope 2. HTN 3. GRETTA with CKD 4. Thyromegaly Recommendations No acute events overnight Review of tele did not reveal any dysrhythmias No significant orthostasis noted. Echo with normal LV function. No valvular disease. Consider event monitor upon discharge Okay for discharge from a cardiac standpoint. F/u in our office as previously scheduled. CAROLINA BRIDGES MD 11/23/16 1633: CARDIO Progress Notes Plan Plan Patient seen and examined. Agree with above nurse practitioner note. No acute events over the last 48 hours with respect to telemetry. On examination she has normal heart tones. Soft systolic murmur. No other significant abnormal values. She worked with physical therapy today and did very well. Current workup ongoing for incidental thyroid nodules found. Carotid ultrasound is negative. Echocardiogram without significant valvular heart disease to suggest the etiology of her near syncope. Suspect this may have been related to mild overdiuresis. Continue supportive care. We will follow along closely. VEE PAALCIOS APRN Nov 23, 2016 12:19 CAROLINA BRIDGES MD Nov 23, 2016 16:33
[2016-11-23] MEDS: ENOXAPARIN 30 MG/0.3 ML DISP.SYRIN. SQ SCH (16:08)
--- NOTE | 2016-11-23 17:42 | PDOC ---
PROGRESS NOTES Subjective Subjective Patient feels better. Still arranging SNU care. Objective Objective Vital Signs Date Time Temp Pulse Resp B/P Pulse Ox O2 Delivery O2 Flow Rate FiO2 11/23/16 14:19 97.8 74 18 125/48 97 Room Air 97.8 Intake and Output 11/23/16 07:00 Intake Total 2200 ml Output Total 1425 ml Balance 775 ml Intake Oral 1000 ml IV Total 1200 ml Output Urine Total 1425 ml Physical Exam Abdomen: Normal bowel sounds Heart: Regular rate Extremities: No edema General: Alert Lungs: Clear to auscultation Assessment Assessment Problems Medical Problems: (1) Vasovagal near syncope Status: Acute 1. Syncope with orthostasis 2. GRETTA with CKD 3. Carotid stenosis 4. thyroid nodule 5. memory loss Plan Plan of Care Await thyroid scan continue PT/OT To SNU when arranged Follow orthostatic BPs Comment Review of Relevant I have reviewed the following items malika (where applicable) has been applied. Labs Laboratory Tests Test 11/21/16 19:18 11/22/16 05:15 11/23/16 04:00 Urine Collection Type Unknown Urine Color Yellow Urine Clarity Clear Urine pH 6.5 Urine Specific [place] <=1.005 Urine Protein Negativemg/dL (NEG-TRACE) Urine Glucose (UA) Negativemg/dL (NEG) Urine Ketones (Stick) Negativemg/dL (NEG) Urine Blood Negative (NEG) Urine Nitrite Negative (NEG) Urine Bilirubin Negative (NEG) Urine Urobilinogen Dipstick 0.2mg/dL (0.2 mg/dL) Urine Leukocyte Esterase Negative (NEG) Urine RBC 0/HPF (0-2) Urine WBC 0/HPF (0-4) Urine Squamous Epithelial Cells Few/LPF Urine Bacteria Few/HPF (0-FEW) Sodium Level 135mmol/L (136-145) 139mmol/L (136-145) Potassium Level 3.6mmol/L (3.5-5.1) 3.4mmol/L (3.5-5.1) Chloride Level 99mmol/L (98-107) 103mmol/L (98-107) Carbon Dioxide Level 27mmol/L (21-32) 26mmol/L (21-32) Anion Gap 9 (6-14) 10 (6-14) Blood Urea Nitrogen 43mg/dL (7-20) 37mg/dL (7-20) Creatinine 1.5mg/dL (0.6-1.0) 1.3mg/dL (0.6-1.0) Estimated GFR (Cockcroft-Gault) 32.9 38.8 Glucose Level 108mg/dL (70-99) 102mg/dL (70-99) Calcium Level 8.7mg/dL (8.5-10.1) 8.5mg/dL (8.5-10.1) Thyroid Stimulating Hormone (TSH) 0.464uIU/mL (0.358-3.74) Free Thyroxine 1.26ng/dL (0.76-1.46) Laboratory Tests Test 11/23/16 04:00 Sodium Level 139mmol/L (136-145) Potassium Level 3.4mmol/L (3.5-5.1) Chloride Level 103mmol/L (98-107) Carbon Dioxide Level 26mmol/L (21-32) Anion Gap 10 (6-14) Blood Urea Nitrogen 37mg/dL (7-20) Creatinine 1.3mg/dL (0.6-1.0) Estimated GFR (Cockcroft-Gault) 38.8 Glucose Level 102mg/dL (70-99) Calcium Level 8.5mg/dL (8.5-10.1) Thyroid Stimulating Hormone (TSH) 0.464uIU/mL (0.358-3.74) Free Thyroxine 1.26ng/dL (0.76-1.46) Medications Current Medications Aspirin (Ecotrin) 81 mg DAILY08 PO Last administered on 11/23/16 09:41; Start 11/20/16 at 13:30 Bupropion HCl (Wellbutrin Sr) 75 mg BID PO Last administered on 11/23/16 09:42 ; Start 11/20/16 at 21:00 Donepezil HCl (Aricept) 10 mg DAILY16 PO ; Start 11/20/16 at 16:00; Stop at 16:00; Status DC Ferrous Sulfate (Feosol) 325 mg DAILYWBKFT PO Last administered on 11/23/16 09 :42; Start 11/21/16 at 08:00 Furosemide (Lasix) 40 mg DAILY PO Last administered on 11/21/16 09:01; Start 11/20/16 at 13:30; Stop 11/21/16 at 10:53; Status DC Gabapentin (Neurontin) 300 mg DAILY08 PO Last administered on 11/23/16 09:42; Start 11/20/16 at 13:30 Acetaminophen/ Hydrocodone Bitart (Lortab 7.5/325) 1 tab PRN Q6HRS PRN PO PAIN ; Start 11/20/16 at 13:00 Paroxetine HCl (Paxil) 20 mg DAILY08 PO Last administered on 11/23/16 09:42; Start 11/20/16 at 13:30 Triamterene/HCTZ (Maxzide 37.5/ 25mg) 1 tab DAILY08 PO Last administered on 09:02; Start 11/20/16 at 13:30; Stop 11/21/16 at 10:53; Status DC Ergocalciferol (Vitamin D2) 50,000 unit WEEKLY PO ; Start 11/27/16 at 09:00 Fenofibrate (Lofibra) 134 mg DAILY PO Last administered on 11/23/16 09:42; Start 11/21/16 at 09:00 Losartan Potassium (Cozaar) 50 mg DAILY08 PO Last administered on 11/21/16 09: 02; Start 11/20/16 at 13:30; Stop 11/21/16 at 10:53; Status DC Fish Oil (Fish Oil) 2,000 mg DAILY16 PO ; Start 11/20/16 at 16:00; Stop at 16:00; Status DC Pantoprazole Sodium (Protonix) 40 mg DAILYAC PO Last administered on 11/23/16 09:42; Start 11/20/16 at 13:30 Potassium Chloride (Klor-Con) 10 meq DAILYWBKFT PO Last administered on 09:01; Start 11/20/16 at 13:30; Stop 11/21/16 at 10:53; Status DC Enoxaparin Sodium (Lovenox 30mg Syringe) 30 mg Q24H SQ Last administered on 16:08; Start 11/20/16 at 14:00 Donepezil HCl (Aricept) 10 mg HS PO Last administered on 11/22/16 20:43; Start 11/20/16 at 21:00 Fish Oil 2000 mg 2,000 mg HS PO Last administered on 11/22/16 20:43; Start at 21:00 Sodium Chloride (Iv Sodium Chloride 0.9% 1000ml Bag) 1,000 ml @ 75 mls/hr 1X ONCE IV Last administered on 11/20/16 18:04; Start 11/20/16 at 18:00; Stop at 07:19; Status DC Fluticasone Propionate (Flonase) 2 spray DAILY NS Last administered on 09:43; Start 11/21/16 at 12:00 Benzonatate 200 mg 200 mg PRN TID PRN PO cough Last administered on 11/22/16 09:23; Start 11/21/16 at 12:00 Sodium Chloride (Iv Sodium Chloride 0.9% 1000ml Bag) 1,000 ml @ 100 mls/hr Q10H IV Last administered on 11/23/16 02:19; Start 11/22/16 at 14:00; Stop at 13:59; Status DC Active Scripts Active Feosol (Ferrous Sulfate) 325 Mg Tablet 325 Mg PO DAILYWBKFT Bupropion Hcl Sr (Bupropion Hcl) 150 Mg Tablet.er 75 Mg PO BID Reported Potassium Chloride 10 Meq Capsule.er 10 Meq PO DAILY Furosemide 40 Mg Tablet 1 Tab PO DAILY Hydrocodone-Apap 7.5-325 (Hydrocodone Bit/Acetaminophen) 1 Each Tablet 1 Tab PO PRN Q6HRS PRN Fish Oil ([place]-3 Fatty Acids) 500 Mg Capsule. 2 Cap PO DAILY16 Aricept (Donepezil Hcl) 10 Mg Tablet 10 Mg PO DAILY16 Vitamin D3 (Cholecalciferol (Vitamin D3)) 50,000 Unit Capsule 50,000 Unit PO WEEKLY WEDNESDAY Aspir 81 (Aspirin) 81 Mg Tablet. 81 Mg PO DAILY08 Losartan Potassium 100 Mg Tablet 50 Mg PO DAILY08 Prilosec (Omeprazole) 20 Mg Capsule. 40 Mg PO DAILY08 Paxil (Paroxetine Hcl) 20 Mg Tablet 20 Mg PO DAILY08 Gabapentin 300 Mg Capsule 300 Mg PO DAILY08 Fenofibrate 160 Mg Tablet 160 Mg PO DAILY08 Vitals/I & O Vital Sign - Last 24 Hours 1/29/17 11/22/16 11/22/16 11/22/16 19:30 19:30 19:30 20:00 Temp 97.7 97.7 Pulse 77 Resp 20 B/P 96/68 129/53 130/57 Pulse Ox 93 O2 Delivery Room Air Room Air 11/22/16 11/23/16 11/23/16 11/23/16 23:07 03:00 07:55 08:00 Temp 98.1 98.0 97.9 98.1 98.0 97.9 Pulse 71 77 70 Resp 22 20 20 B/P 123/53 135/59 137/58 Pulse Ox 93 92 95 O2 Delivery Room Air Room Air Room Air Room Air 11/23/16 11/23/16 11/23/16 11/23/16 10:50 10:57 11:01 14:19 Temp 97.7 97.8 97.7 97.8 Pulse 71 69 72 74 Resp 20 18 18 B/P 131/60 130/49 112/42 125/48 Pulse Ox 97 97 O2 Delivery Room Air Room Air Intake and Output 11/22/16 11/22/16 11/23/16 15:00 23:00 07:00 Intake Total 700 ml 1500 ml Output Total 475 ml 950 ml Balance 225 ml 550 ml JEREMY PATE MD Nov 23, 2016 17:42
[2016-11-23] MEDS: DONEPEZIL HCL 10 MG TABLET. PO SCH (20:35)
[2016-11-23] MEDS: OMEGA-3 FATTY ACIDS/FISH OIL 1,000 MG CAPSULE. PO SCH (20:36)
[2016-11-24 03:00] VITALS: BP_SYST 113; BP_SYST 123; BP_DIAS 59; BP_DIAS 66
--- NOTE | 2016-11-24 09:42 | RAD ---
24-hour I-131 uptake and scan, 11/24/2016: History: Thyromegaly The 24-hour I-131 uptake is 4.3%. Imaging of the gland was performed following IV injection of 16 mCi of technetium 99m pertechnetate. The gland is heterogeneous. There is relatively decreased activity within the mid and lower aspects of the right lobe of the gland compared to the left. The ultrasound study 11/21/2016 demonstrated dominant nodules in the mid and lower aspect of the right lobe of the gland. Small patchy areas of decreased activity are also present in the left lobe. IMPRESSION: 1. Low 24-hour I-131 uptake of 4.3%. 2. Multinodular thyroid gland with relatively decreased activity in the dominant nodules in the mid and lower aspects of the right lobe of the gland. Ultrasound-guided biopsy may be useful for further evaluation, if clinically indicated.
[2016-11-24] MEDS: buPROPion SR 150 MG TABLET.SA PO SCH (10:16)
[2016-11-24] MEDS: ASPIRIN ENTERIC COATED 81 MG TABLET.DR. PO SCH (10:16)
[2016-11-24] MEDS: PANTOPRAZOLE 40 MG TABLET. PO SCH (10:16)
[2016-11-24] MEDS: FLUTICASONE 50MCG/NASAL SPRAY 16GM BOTTLE. NS SCH (10:16)
[2016-11-24] MEDS: FERROUS SULFATE 325 MG TABLET PO SCH (10:16)
[2016-11-24] MEDS: GABAPENTIN 300 MG CAPSULE. PO SCH (10:16)
[2016-11-24] MEDS: PAROXETINE 20 MG TABLET. PO SCH (10:16)
[2016-11-24] MEDS: FENOFIBRATE,MICRONIZED 134 MG CAPSULE PO SCH (10:16)
[2016-11-27] MEDS ORDERED: ERGOCALCIFEROL (VITAMIN D2) 50,000 UNIT CAPSULE PO SCH (09:00)
== END 2016-11-24 10:20 | DRG 683 ==
LOC: 2 NORTH 11:24 → OBSVTOIN 12:54
PROVIDERS: ADMIT Family Medicine; ATTEND Family Medicine
DX: N17.9 Acute kidney failure, unspecified (principal); I13.0 Hypertensive heart and chronic kidney disease with heart failure and stage 1 through stage 4 chronic kidney disease, or unspecified chronic kidney disease; I95.1 Orthostatic hypotension; I65.29 Occlusion and stenosis of unspecified carotid artery; E78.5 Hyperlipidemia, unspecified; K21.9 Gastro-esophageal reflux disease without esophagitis; I50.9 Heart failure, unspecified; N18.3 Chronic kidney disease, stage 3 (moderate); Z96.659 Presence of unspecified artificial knee joint; F41.9 Anxiety disorder, unspecified; G89.29 Other chronic pain; M54.9 Dorsalgia, unspecified; R41.3 Other amnesia; Z79.82 Long term (current) use of aspirin; E01.0 Iodine-deficiency related diffuse (endemic) goiter
CPT/HCPCS: 36415; 71020; 76536; 78014; 80048; 80053; 81001; 83735; 84100; 84439; 84443; 85027; 87641; 93306; 93880; A9512; A9528; G0379; J1650; J7030; 97116

== ENCOUNTER 2017-03-26 00:48 | Emergency (ER) | payer MEDICARE ==
[~2017-03-26] VITALS: Ht 154.9 cm; Wt 82.1 kg
[~2017-03-26 00:48] MED LIST changes: -BUPIVACAINE MPF 0.5% 10 ML VIAL for KCIC. IJ ONE; -LIDOCAINE 1% Multi-Dose 20 ML VIAL. ID ONE; -methylPREDNISolone ACETATE 40 MG/ML VIAL. INT ART ONE
[2017-03-26] MEDS ORDERED: ACETAMINOPHEN 500 MG TABLET PO ONE (01:15)
[2017-03-26] MEDS ORDERED: IBUPROFEN 400 MG TABLET. PO ONE (01:15)
--- NOTE | 2017-03-26 01:17 | PHYS DOC ---
Past Medical History Past Medical History: Dementia, GERD, High Cholesterol, Heart Disease, Hypertension Additional Past Medical Histor: chronic back pain, breast cancer Past Surgical History: Cancer Surgery, Cholecystectomy, Hysterectomy Additional Past Surgical Histo: Lt.Knee, Lt.breast lymph Alcohol Use: None Drug Use: None Adult General Chief Complaint Chief Complaint: MECHANICAL FALL HPI HPI Patient is a 87 year old female who presents with mild right forearm pain, right hip pain, and right knee pain after a trip and fall this evening. She got out of bed, tripped and fell. She tried to catch her dresser and hurt her forearm. She was unable to get up on her own, so EMS was called. She usually uses a walker. She denies other injury. Denies limitation in ROM of limbs. She denies headache, head injury, neck pain, back pain, chest pain, abdominal pain, nausea or vomiting, fever or chills, lightheadedness, dizziness. States she was prior in her normal state of health. Review of Systems Review of Systems Constitutional: Denies fever or chills [] Eyes: Denies change in visual acuity, redness, or eye pain [] HENT: Denies nasal congestion or sore throat [] Respiratory: Denies cough or shortness of breath [] Cardiovascular: No additional information not addressed in HPI [] GI: Denies abdominal pain, nausea, vomiting, bloody stools or diarrhea [] : Denies dysuria or hematuria [] Musculoskeletal: Denies back pain [] Integument: Denies rash or skin lesions [] Neurologic: Denies headache, focal weakness or sensory changes [] Endocrine: Denies polyuria or polydipsia [] Current Medications Current Medications Current Medications Medications (Trade) Dose Ordered Sig/Jackelyn Start Time Stop Time Status Last Admin Dose Admin Acetaminophen (Tylenol) 500 mg 1X ONCE 03/26/17 01:15 03/26/17 01:16 DC 03/26/17 01:50 500 MG Ibuprofen (Motrin) 400 mg 1X ONCE 03/26/17 01:15 03/26/17 01:16 DC 03/26/17 01:50 400 MG Allergies Allergies Allergies Coded Allergies Type Severity Reaction Last Updated Verified I S O L A T I O N *CONTACT* Allergy Unknown 10/27/16 Yes No Known Medication Allergies Allergy Unknown 10/27/16 Yes Physical Exam Physical Exam Constitutional: Well developed, well nourished, no acute distress, non-toxic appearance. [] HENT: Normocephalic, atraumatic, bilateral external ears normal, oropharynx moist, nose normal. [] Eyes: PERRLA, EOMI. [] Neck: Normal range of motion, supple. [] Cardiovascular:Heart rate regular rhythm [] Lungs & Thorax: Bilateral breath sounds clear to auscultation [] Abdomen: Bowel sounds normal, soft, no tenderness. [] Skin: Warm, dry, no erythema, no rash. [] Back: No tenderness, no CVA tenderness. [] Extremities: RUE with no obvious deformity; has linear ecchymosis along ulna without bleeding or open skin; Full ROM with shoulder/elbow/wrist/hand; Can pronate/ supinate; Can make fist/ok sign/thumb up/finger cross and spread; Can flex/ex wrist; Good radial pulse and brisk cap refill equal bilaterally; sensation intact to light touch m/u/r/axnerves RLE with no obvious deformity or discoloration; Has some lateral hip and lateral knee tenderness with no visual or palpable abnormality; Able to flex/ex/ IR/ER hip, knee full rom, ankle df/pf, toes df/pf; SILT [place]/sa/sp/dp/tib distributions; dp and pt pulses equal bilaterally Neurologic: Alert and oriented X 3, normal motor function, normal sensory function, no focal deficits noted. [] Psychologic: Affect normal, judgement normal, mood normal. [] Current Patient Data Vital Signs Vital Signs Date Time Temp Pulse Resp B/P (MAP) Pulse Ox O2 Delivery O2 Flow Rate FiO2 03/26/17 00:49 98.1 78 16 166/83 (110) 95 Room Air 98.1 Radiology/Procedures Radiology/Procedures Right hip and pelvis x-ray as interpreted by me with no acute fracture or dislocation Right knee x-ray as interpreted by me was no acute fracture or dislocation Course & Med Decision Making Course & Med Decision Making Pertinent Labs and Imaging studies reviewed. (See chart for details) Imaging is unremarkable. She feels well after medications here. She is ambulatory with a steady gait with a walker. She would like to return to her assisted living facility. Return precautions given. She understands and agrees with plan. Michelle Disclaimer Michelle Disclaimer This electronic medical record was generated, in whole or in part, using a voice recognition dictation system. Departure Departure Impression: Primary Impression: Abrasion of right forearm, initial encounter Additional Impressions: Acute right hip pain Pain in right knee Disposition: HOME, SELF-CARE Condition: STABLE Referrals: JEREMY PATE MD (PCP) Patient Instructions: Musculoskeletal Pain Additional Instructions: Follow-up with your primary care doctor within one week. Return for any concerns. Problem Qualifiers Additional Impressions: Pain in right knee Chronicity: acute Qualified Codes: M25.561 - Pain in right knee Earl DOOLEY MD Mar 26, 2017 01:17
[2017-03-26 01:48] VITALS: BP 160/70
--- NOTE | 2017-03-26 07:17 | RAD ---
Right knee radiographs History: Lateral knee pain after fall. Comparison: 10/08/2013. Findings: AP, lateral, and oblique views of the right knee. Osseous structures appear mildly demineralized. No acute fracture or dislocation is identified. Severe medial compartment degeneration is seen with complete loss of joint space as well as irregularity of the articular surface. Moderate-severe lateral compartment degeneration is seen. Severe patellofemoral compartment degeneration is present with large marginal osteophyte formation. Large joint effusion is seen. Arterial calcifications are present. Impression: 1. No acute osseous traumatic injury identified. 2. Degeneration. 3. Joint effusion.
--- NOTE | 2017-03-26 07:18 | RAD ---
Pelvis and right hip radiographs History: Hip pain after fall. Comparison: 10/25/2016. Findings: AP view of the pelvis. AP and frog-leg views of the right hip. No acute fracture or dislocation is identified. Moderate right and severe left hip degeneration is seen. Degenerative changes are seen involving the lower lumbar spine. Impression: No acute osseous traumatic injury identified.
== END 2017-03-26 03:15 | disposition home or self-care (01) ==
LOC: ER 00:48
DX: S50.811A Abrasion of right forearm, initial encounter (principal); M25.551 Pain in right hip; M25.561 Pain in right knee; F03.90 Unspecified dementia, unspecified severity, without behavioral disturbance, psychotic disturbance, mood disturbance, and anxiety; K21.9 Gastro-esophageal reflux disease without esophagitis; E78.00 Pure hypercholesterolemia, unspecified; I11.9 Hypertensive heart disease without heart failure; G89.29 Other chronic pain; Z90.49 Acquired absence of other specified parts of digestive tract; Z90.710 Acquired absence of both cervix and uterus; Z91.041 Radiographic dye allergy status; W01.0XXA Fall on same level from slipping, tripping and stumbling without subsequent striking against object, initial encounter; Y93.89 Activity, other specified; Y92.89 Other specified places as the place of occurrence of the external cause; Y99.8 Other external cause status
CPT/HCPCS: 73502; 73562; 99284

== ENCOUNTER → 2017-03-26 | Outpatient (CLI) | payer MEDICARE ==
[~2017-03-26] MED LIST changes: +BUPIVACAINE MPF 0.5% 10 ML VIAL for KCIC. IJ ONE; +FURO40TA4 PO; +LIDOCAINE 1% Multi-Dose 20 ML VIAL. ID ONE; +POTASSIUM CHLO10 MEQ PO; +methylPREDNISolone ACETATE 40 MG/ML VIAL. INT ART ONE
[2017-03-26 01:48] VITALS: BP 160/70
--- NOTE | 2017-03-26 12:50 | KCIC ---
PROCEDURE Therapeutic left hip injection using fluoroscopic guidance. HISTORY Hip pain. Osteoarthritis. Chronic pain. TECHNIQUE The procedure was explained to the patient as were potential risks, including infection, bleeding or allergic reaction. All questions were answered. Informed written and verbal consent was obtained. The hip was prepped and draped in the usual sterile manner. Following administration of local anesthetic, a 22-gauge spinal needle was advanced into the hip joint without difficulty, with care taken to avoid the vascular structures. Stylet was removed and following negative aspiration, a mixture of 4 cc Omnipaque-300, 2 cc (80 mg) Depo-Medrol, 4 cc 0.5% Marcaine and 4 cc 1% lidocaine were injected without difficulty. Fluoroscopy demonstrates uniform and satisfactory distribution of the injection through the hip. The needle was removed. There was good hemostasis at the injection site. The patient left in stable condition without immediate complication. The patient was given postprocedural instructions, instructed to contact us or the emergency room if there are any complications. A single spot image was obtained. FLUOROSCOPY TIME: 36 seconds Electronically signed by: Faisal Farr MD (03/26/2017 12:47 PM)
== END | disposition home or self-care (01) ==
LOC: KCIC 10:02
PROVIDERS: ATTEND Orthopaedic Surgery
DX: M16.12 Unilateral primary osteoarthritis, left hip (principal); G89.29 Other chronic pain
CPT/HCPCS: 20610; 77002; J1030

== ENCOUNTER → 2017-06-24 | Outpatient (CLI) | payer MEDICARE ==
[~2017-06-24] MED LIST changes: +BUPIVACAINE MPF 0.5% 10 ML VIAL for KCIC. IJ ONE; -DONE10TA34 PO; +DONE10TA61 PO; +IOHEXOL 300 MG/ML 50 ML VIAL. INT ART ONE; +LIDOCAINE 1% Multi-Dose 20 ML VIAL. ID ONE; -PARO20TA55 PO; +PARO20TA99 PO; +methylPREDNISolone ACETATE 40 MG/ML VIAL. INT ART ONE
--- NOTE | 2017-06-24 14:19 | KCIC ---
Examination: Therapeutic left hip steroid injection using fluoroscopic guidance HISTORY: History of left hip pain, osteoarthritis COMPARISON: 03/26/2017 TECHNIQUE: Informed consent was obtained after explaining the risks and benefits to the patient. All questions were answered. The region of the left hip was prepped and draped in sterile fashion. Local anesthesia was achieved 1 percent lidocaine. A 22-gauge spinal needle was advanced into the hip joint without difficulty. The stylet was removed. 1 cc of joint fluid was aspirated, a mixture of 4 cc of Omnipaque 300, 2 cc of 80 mg of Depo-Medrol, 4 cc of 0.5 percent Marcaine and 4 cc of 1 percent lidocaine were injected without difficulty. Fluoroscopy demonstrated satisfactory distribution of injection. The needle was removed. There was good hemostasis. No immediate complications. Single fluoroscopic images obtained. A timeout was 17 seconds. IMPRESSION: Successful fluoroscopic guided left hip steroid injection. Electronically signed by: Pantera Cheatham MD (06/24/2017 2:16 PM) [id number]
== END | disposition home or self-care (01) ==
LOC: KCIC 10:10
PROVIDERS: ATTEND Orthopaedic Surgery
DX: M16.12 Unilateral primary osteoarthritis, left hip (principal); G89.29 Other chronic pain; I10 Essential (primary) hypertension; J45.909 Unspecified asthma, uncomplicated
CPT/HCPCS: 20605; 77002; J1030; Q9967

== ENCOUNTER → 2017-09-30 | Outpatient (CLI) | payer MEDICARE ==
--- NOTE | 2017-09-30 15:44 | KCIC ---
PROCEDURE Therapeutic left hip injection using fluoroscopic guidance. HISTORY Hip pain. Pain is chronic. TECHNIQUE The procedure was explained to the patient as were potential risks, including infection, bleeding or allergic reaction. All questions were answered. Informed written and verbal consent was obtained. The hip was prepped and draped in the usual sterile manner. Following administration of local anesthetic, a 22-gauge spinal needle was advanced into the hip joint without difficulty, with care taken to avoid the vascular structures. Stylet was removed and following negative aspiration, a mixture of 4 cc Omnipaque-300, 2 cc (80 mg) Depo-Medrol, 4 cc 0.5% Marcaine and 4 cc 1% lidocaine were injected without difficulty. Fluoroscopy demonstrates uniform and satisfactory distribution of the injection through the hip. The needle was removed. There was good hemostasis at the injection site. The patient left in stable condition without immediate complication. A single spot image was obtained. FLUOROSCOPY TIME: 41 seconds Electronically signed by: Faisal Farr MD (09/30/2017 3:41 PM) [id number]
== END | disposition home or self-care (01) ==
LOC: KCIC 10:07
PROVIDERS: ATTEND Family Medicine
DX: M16.12 Unilateral primary osteoarthritis, left hip (principal); I12.9 Hypertensive chronic kidney disease with stage 1 through stage 4 chronic kidney disease, or unspecified chronic kidney disease; N18.3 Chronic kidney disease, stage 3 (moderate); Z79.01 Long term (current) use of anticoagulants
CPT/HCPCS: 20605; 77002; J1030; Q9967

== ENCOUNTER → 2018-01-31 | Outpatient (CLI) | payer MEDICARE ==
[2018-01-31] MEDS: IOHEXOL 300 MG/ML 50 ML VIAL. INT ART (11:29)
[2018-01-31] MEDS: BUPIVACAINE MPF 0.5% 10 ML VIAL for KCIC. IJ (11:29)
[2018-01-31] MEDS: methylPREDNISolone ACETATE 40 MG/ML VIAL. INT ART (11:29)
[2018-01-31] MEDS: LIDOCAINE 1% Multi-Dose 20 ML VIAL. ID (11:29)
== END | disposition home or self-care (01) ==
LOC: KCIC 10:07
DX: M16.12 Unilateral primary osteoarthritis, left hip (principal); G89.29 Other chronic pain; I12.9 Hypertensive chronic kidney disease with stage 1 through stage 4 chronic kidney disease, or unspecified chronic kidney disease; N18.3 Chronic kidney disease, stage 3 (moderate); Z79.01 Long term (current) use of anticoagulants
CPT/HCPCS: 20610; 77002; J1030; Q9967

== ENCOUNTER 2018-05-03 03:44 | Inpatient (IN) | payer MEDICARE ==
[2018-05-03] MEDS: NALOXONE 0.4 MG/ML VIAL. IV (04:22)
[2018-05-03] MEDS: ONDANSETRON PF 4 MG/2 ML VIAL. IV (04:22)
[2018-05-03] MEDS: IV NORMAL SALINE 500ML BAG 500 ML IV (04:23)
[2018-05-03 04:28] LABS: BASO % 0 % (0-3); EOS % 0 % (0-3); HEMATOCRIT 35.4 % (36.0-47.0); HEMOGLOBIN 11.8 g/dL (12.0-15.5); LYMPH # 0.1 x10^3/uL (1.0-4.8); LYMPH % 3 % (24-48); MEAN CORPUSCULAR HEMOGLOBIN 32 pg (25-35); MEAN CORPUSCULAR HGB CONC 33 g/dL (31-37); MEAN CORPUSCULAR VOLUME 95 fL (79-100); MONO % 0 % (0-9); NEUT # 3.8 x10^3uL (1.8-7.7); NEUT % 96 % (31-73); PLATELET COUNT 211 x10^3/uL (140-400); RED BLOOD COUNT 3.73 x10^6/uL (3.50-5.40); RED CELL DISTRIBUTION WIDTH 14.6 % (11.5-14.5); WHITE BLOOD COUNT 3.9 x10^3/uL (4.0-11.0)
[2018-05-03 04:31] LABS: ADD MAN DIFF? YES
[2018-05-03 04:36] LABS: INR 1.3 (0.8-1.1); PROTHROMBIN TIME PATIENT 15.2 SEC (11.7-14.0)
[2018-05-03 04:46] LABS: ANION GAP 13 (6-14); BLOOD UREA NITROGEN 28 mg/dL (7-20); BUN/CREATININE RATIO 18 (6-20); CALCIUM 8.6 mg/dL (8.5-10.1); CARBON DIOXIDE 22 mmol/L (21-32); CHLORIDE 103 mmol/L (98-107); CREATININE 1.6 mg/dL (0.6-1.0); GFR 30.4; GLUCOSE 96 mg/dL (70-99); POTASSIUM 3.1 mmol/L (3.5-5.1); SODIUM 138 mmol/L (136-145)
[2018-05-03 04:50] LABS: ALBUMIN 3.1 g/dL (3.4-5.0); ALBUMIN/GLOBULIN RATIO 0.8 (1.0-1.7); ALK PHOS 71 U/L (46-116); ALT (SGPT) 60 U/L (14-59); AST (SGOT) 66 U/L (15-37); LIPASE 227 U/L (73-393); MAGNESIUM 1.5 mg/dL (1.8-2.4); TOTAL BILIRUBIN 1.8 mg/dL (0.2-1.0); TOTAL PROTEIN 6.8 g/dL (6.4-8.2)
[2018-05-03 05:02] LABS: TROPONINI 0.309 ng/mL (0.000-0.055)
[2018-05-03 05:28] LABS: BILIRUBIN,URINE SMALL (NEG); CLARITY,URINE CLOUDY; COLOR,URINE AMBER; GLUCOSE,URINE NEGATIVE (NEG); NITRITE,URINE NEGATIVE (NEG); PROTEIN,URINE >=300 mg/dL (NEG-TRACE)
[2018-05-03 05:41] LABS: BACTERIA,URINE MANY /HPF (0-FEW); SQUAMOUS EPITHELIAL CELL,UR FEW /LPF; WBC,URINE 20-40 /HPF (0-4)
[2018-05-03] MEDS: ASPIRIN CHEWABLE 81 MG TABLET. PO (05:43)
[2018-05-03 05:53] LABS: LACTIC ACID 3.1 mmol/L (0.4-2.0)
[2018-05-03] MEDS: MAGNESIUM SULFATE 1GM 100 ML IV (05:53)
[2018-05-03] MEDS: PIPERACILLIN/TAZOBACTAM 3.375 GM in IV NORMAL SALINE 50ML 50 ML IV (05:53)
[2018-05-03] MEDS: IV NORMAL SALINE 1000ML BAG 1,000 ML IV ×2 (06:19→12:18)
[2018-05-03] MEDS: ACETAMINOPHEN 325 MG TABLET. PO ×2 (06:19→22:36)
[2018-05-03] MEDS: VANCOMYCIN PER PHARMACY MC (06:51)
[2018-05-03 07:26] LABS: % EOS 1 % (0-5); % LYMPHS 2 % (24-48); % MONOS 1 % (0-10); % SEGS 96 % (35-66); NUCLEATED RBC 1; PLT ESTIMATE ADEQUATE (ADEQUATE)
[2018-05-03] MEDS: VANCOMYCIN 2 GM in IV 1/2 NORMAL SALINE 500 ML IV (08:16)
[2018-05-03 09:39] LABS: LACTIC ACID 1.4 mmol/L (0.4-2.0)
[2018-05-03 09:48] LABS: TROPONINI 0.488 ng/mL (0.000-0.055)
[2018-05-03] MEDS: ASPIRIN ENTERIC COATED 81 MG TABLET.DR. PO (12:17)
[2018-05-03] MEDS: PARoxetine 20 MG TABLET PO (12:17)
[2018-05-03] MEDS: PANTOPRAZOLE 40 MG TABLET.DR. PO (12:17)
[2018-05-03] MEDS: FERROUS SULFATE 325 MG TABLET. PO (12:17)
[2018-05-03] MEDS: GABAPENTIN 300 MG CAPSULE. PO (12:17)
[2018-05-03] MEDS: FENOFIBRATE,MICRONIZED 134 MG CAPSULE PO (12:17)
[2018-05-03] MEDS: buPROPion 75 MG TABLET. PO ×2 (12:18→20:34)
[2018-05-03] MEDS: HYDROcodone/APAP 7.5/325MG 1 TAB TABLET PO ×2 (12:26→19:41)
[2018-05-03 12:35] LABS: TROPONINI 0.339 ng/mL (0.000-0.055)
[2018-05-03] MEDS: POTASSIUM CHLORIDE 20 MEQ TABLET.ER. PO ×2 (14:55→17:39)
[2018-05-03] MEDS: tiZANidine 4 MG TABLET. PO ×2 (14:56→22:36)
[2018-05-03] MEDS: DONEPEZIL HCL 10 MG TABLET. PO (16:45)
[2018-05-03] MEDS: OMEGA-3 FATTY ACIDS/FISH OIL 1,000 MG CAPSULE. PO (16:45)
[2018-05-03] MEDS: PIPERACILLIN/TAZOBACTAM 2.25 GM in IV NORMAL SALINE 50ML 50 ML IV ×2 (19:39→23:50)
[2018-05-04] MEDS: IV NORMAL SALINE 1000ML BAG 1,000 ML IV ×2 (02:26→12:40)
[2018-05-04 03:20] LABS: MRSA BY PCR Negative (Negative)
[2018-05-04 03:54] LABS: BASO % 0 % (0-3); EOS # 0.1 x10^3/uL (0.0-0.7); EOS % 0 % (0-3); HEMATOCRIT 28.4 % (36.0-47.0); HEMOGLOBIN 9.4 g/dL (12.0-15.5); LYMPH % 4 % (24-48); MEAN CORPUSCULAR HEMOGLOBIN 32 pg (25-35); MEAN CORPUSCULAR HGB CONC 33 g/dL (31-37); MEAN CORPUSCULAR VOLUME 96 fL (79-100); MONO # 1.3 x10^3/uL (0.0-1.1); MONO % 6 % (0-9); NEUT # 19.5 x10^3uL (1.8-7.7); NEUT % 89 % (31-73); PLATELET COUNT 138 x10^3/uL (140-400); RED BLOOD COUNT 2.97 x10^6/uL (3.50-5.40); RED CELL DISTRIBUTION WIDTH 14.9 % (11.5-14.5); WHITE BLOOD COUNT 21.9 x10^3/uL (4.0-11.0)
[2018-05-04 03:59] LABS: ADD MAN DIFF? YES
[2018-05-04 04:29] LABS: ANION GAP 8 (6-14); BLOOD UREA NITROGEN 34 mg/dL (7-20); CALCIUM 7.4 mg/dL (8.5-10.1); CARBON DIOXIDE 22 mmol/L (21-32); CHLORIDE 106 mmol/L (98-107); CREATININE 2.5 mg/dL (0.6-1.0); GFR 18.2; GLUCOSE 83 mg/dL (70-99); SODIUM 136 mmol/L (136-145)
[2018-05-04] MEDS: PIPERACILLIN/TAZOBACTAM 2.25 GM in IV NORMAL SALINE 50ML 50 ML IV ×3 (06:02→18:05)
[2018-05-04 07:40] LABS: % BANDS 20 % (0-9); % LYMPHS 5 % (24-48); % MONOS 3 % (0-10); % SEGS 72 % (35-66); PLT ESTIMATE DECREASED (ADEQUATE)
[2018-05-04 07:41] LABS: ANISOCYTOSIS PRESENT; TOXIC GRANULATION PRESENT; TOXIC VACUOLATION PRESENT
[2018-05-04] MEDS: VANCOMYCIN 1.25 GM in IV NORMAL SALINE 250ML 250 ML IV (08:52)
[2018-05-04] MEDS: PANTOPRAZOLE 40 MG TABLET.DR. PO (08:53)
[2018-05-04] MEDS: GABAPENTIN 300 MG CAPSULE. PO (08:53)
[2018-05-04] MEDS: ASPIRIN ENTERIC COATED 81 MG TABLET.DR. PO (08:54)
[2018-05-04] MEDS: FERROUS SULFATE 325 MG TABLET. PO (08:54)
[2018-05-04] MEDS: buPROPion 75 MG TABLET. PO ×2 (08:54→20:38)
[2018-05-04] MEDS: FENOFIBRATE,MICRONIZED 134 MG CAPSULE PO (08:54)
[2018-05-04] MEDS: PARoxetine 20 MG TABLET PO (08:54)
[2018-05-04] MEDS: HYDROcodone/APAP 7.5/325MG 1 TAB TABLET PO ×3 (08:55→22:41)
[2018-05-04] MEDS: tiZANidine 4 MG TABLET. PO ×3 (08:55→22:41)
[2018-05-04] MEDS: VANCOMYCIN PER PHARMACY MC (14:00)
[2018-05-04 16:11] LABS: THYROID STIM HORMONE (TSH) 1.196 uIU/mL (0.358-3.74)
[2018-05-04] MEDS: DONEPEZIL HCL 10 MG TABLET. PO (16:39)
[2018-05-04] MEDS: OMEGA-3 FATTY ACIDS/FISH OIL 1,000 MG CAPSULE. PO (16:39)
[2018-05-04] MEDS: LACTOBACILLUS RHAMNOSUS GG 1 CAPSULE. PO (20:38)
[2018-05-05] MEDS: PIPERACILLIN/TAZOBACTAM 2.25 GM in IV NORMAL SALINE 50ML 50 ML IV ×4 (00:19→19:05)
[2018-05-05] MEDS: HYDROcodone/APAP 7.5/325MG 1 TAB TABLET PO ×2 (03:10→23:13)
[2018-05-05 03:49] LABS: ADD MAN DIFF? NO
[2018-05-05 03:53] LABS: BASO # 0.1 x10^3/uL (0.0-0.2); BASO % 0 % (0-3); EOS # 0.2 x10^3/uL (0.0-0.7); EOS % 1 % (0-3); HEMATOCRIT 28.2 % (36.0-47.0); HEMOGLOBIN 9.3 g/dL (12.0-15.5); LYMPH # 1.2 x10^3/uL (1.0-4.8); LYMPH % 7 % (24-48); MEAN CORPUSCULAR HEMOGLOBIN 32 pg (25-35); MEAN CORPUSCULAR HGB CONC 33 g/dL (31-37); MEAN CORPUSCULAR VOLUME 95 fL (79-100); MONO # 0.8 x10^3/uL (0.0-1.1); MONO % 4 % (0-9); NEUT # 15.6 x10^3uL (1.8-7.7); NEUT % 88 % (31-73); PLATELET COUNT 169 x10^3/uL (140-400); RED BLOOD COUNT 2.96 x10^6/uL (3.50-5.40); RED CELL DISTRIBUTION WIDTH 15.1 % (11.5-14.5); WHITE BLOOD COUNT 17.8 x10^3/uL (4.0-11.0)
[2018-05-05 04:12] LABS: ANION GAP 12 (6-14); BLOOD UREA NITROGEN 44 mg/dL (7-20); CARBON DIOXIDE 20 mmol/L (21-32); CHLORIDE 104 mmol/L (98-107); CREATININE 2.2 mg/dL (0.6-1.0); GFR 21.1; GLUCOSE 87 mg/dL (70-99); POTASSIUM 4.5 mmol/L (3.5-5.1); SODIUM 136 mmol/L (136-145)
[2018-05-05] MEDS: tiZANidine 4 MG TABLET. PO ×2 (06:30→23:13)
[2018-05-05] MEDS: buPROPion 75 MG TABLET. PO ×2 (11:34→21:13)
[2018-05-05] MEDS: FENOFIBRATE,MICRONIZED 134 MG CAPSULE PO (11:34)
[2018-05-05] MEDS: PANTOPRAZOLE 40 MG TABLET.DR. PO (11:34)
[2018-05-05] MEDS: LACTOBACILLUS RHAMNOSUS GG 1 CAPSULE. PO ×2 (11:34→21:12)
[2018-05-05] MEDS: ASPIRIN ENTERIC COATED 81 MG TABLET.DR. PO (11:35)
[2018-05-05] MEDS: PARoxetine 20 MG TABLET PO (11:35)
[2018-05-05] MEDS: FERROUS SULFATE 325 MG TABLET. PO (11:35)
[2018-05-05] MEDS: GABAPENTIN 300 MG CAPSULE. PO (11:35)
[2018-05-05] MEDS: DONEPEZIL HCL 10 MG TABLET. PO (19:05)
[2018-05-05] MEDS: OMEGA-3 FATTY ACIDS/FISH OIL 1,000 MG CAPSULE. PO (19:05)
[2018-05-06] MEDS: PIPERACILLIN/TAZOBACTAM 2.25 GM in IV NORMAL SALINE 50ML 50 ML IV ×3 (00:15→12:00)
[2018-05-06 04:58] LABS: ADD MAN DIFF? NO
[2018-05-06 05:04] LABS: BASO % 0 % (0-3); EOS # 0.2 x10^3/uL (0.0-0.7); EOS % 2 % (0-3); HEMATOCRIT 28.9 % (36.0-47.0); HEMOGLOBIN 9.8 g/dL (12.0-15.5); LYMPH # 1.1 x10^3/uL (1.0-4.8); LYMPH % 12 % (24-48); MEAN CORPUSCULAR HEMOGLOBIN 32 pg (25-35); MEAN CORPUSCULAR HGB CONC 34 g/dL (31-37); MEAN CORPUSCULAR VOLUME 94 fL (79-100); MONO # 0.5 x10^3/uL (0.0-1.1); MONO % 5 % (0-9); NEUT # 7.7 x10^3uL (1.8-7.7); NEUT % 80 % (31-73); PLATELET COUNT 188 x10^3/uL (140-400); RED BLOOD COUNT 3.06 x10^6/uL (3.50-5.40); WHITE BLOOD COUNT 9.6 x10^3/uL (4.0-11.0)
[2018-05-06 05:46] LABS: ANION GAP 13 (6-14); BLOOD UREA NITROGEN 37 mg/dL (7-20); CALCIUM 8.7 mg/dL (8.5-10.1); CARBON DIOXIDE 20 mmol/L (21-32); CHLORIDE 107 mmol/L (98-107); CREATININE 1.7 mg/dL (0.6-1.0); GFR 28.4; GLUCOSE 97 mg/dL (70-99); POTASSIUM 4.2 mmol/L (3.5-5.1); SODIUM 140 mmol/L (136-145)
[2018-05-06] MEDS: tiZANidine 4 MG TABLET. PO ×2 (09:58→20:45)
[2018-05-06] MEDS: GABAPENTIN 300 MG CAPSULE. PO (09:59)
[2018-05-06] MEDS: ASPIRIN ENTERIC COATED 81 MG TABLET.DR. PO (09:59)
[2018-05-06] MEDS: FERROUS SULFATE 325 MG TABLET. PO (09:59)
[2018-05-06] MEDS: buPROPion 75 MG TABLET. PO ×2 (09:59→20:45)
[2018-05-06] MEDS: DONEPEZIL HCL 10 MG TABLET. PO (09:59)
[2018-05-06] MEDS: FENOFIBRATE,MICRONIZED 134 MG CAPSULE PO (09:59)
[2018-05-06] MEDS: PARoxetine 20 MG TABLET PO (09:59)
[2018-05-06] MEDS: LACTOBACILLUS RHAMNOSUS GG 1 CAPSULE. PO ×2 (09:59→20:45)
[2018-05-06] MEDS: PANTOPRAZOLE 40 MG TABLET.DR. PO (10:00)
[2018-05-06] MEDS ORDERED: cefTRIAXone SODIUM 2 GM in IV DEXTROSE 5% 100ML 100 ML IV (14:30)
[2018-05-06] MEDS: OMEGA-3 FATTY ACIDS/FISH OIL 1,000 MG CAPSULE. PO (17:54)
[2018-05-06] MEDS: cefTRIAXone IV Push 2 GM VIAL. IVP (17:54)
[2018-05-07] MEDS: ONDANSETRON PF 4 MG/2 ML VIAL. IV (04:32)
[2018-05-07] MEDS: PANTOPRAZOLE 40 MG TABLET.DR. PO (08:45)
[2018-05-07] MEDS: ASPIRIN ENTERIC COATED 81 MG TABLET.DR. PO (08:45)
[2018-05-07] MEDS: FENOFIBRATE,MICRONIZED 134 MG CAPSULE PO (08:45)
[2018-05-07] MEDS: GABAPENTIN 300 MG CAPSULE. PO (08:45)
[2018-05-07] MEDS: buPROPion 75 MG TABLET. PO ×2 (08:45→21:22)
[2018-05-07] MEDS: LACTOBACILLUS RHAMNOSUS GG 1 CAPSULE. PO ×2 (08:45→21:22)
[2018-05-07] MEDS: FERROUS SULFATE 325 MG TABLET. PO (08:45)
[2018-05-07] MEDS: PARoxetine 20 MG TABLET PO (08:45)
[2018-05-07] MEDS: HYDROcodone/APAP 7.5/325MG 1 TAB TABLET PO (08:45)
[2018-05-07] MEDS: OMEGA-3 FATTY ACIDS/FISH OIL 1,000 MG CAPSULE. PO (16:25)
[2018-05-07] MEDS: DONEPEZIL HCL 10 MG TABLET. PO (16:25)
[2018-05-07] MEDS: cefTRIAXone IV Push 2 GM VIAL. IVP (16:25)
[2018-05-07] MEDS: tiZANidine 4 MG TABLET. PO (23:52)
[2018-05-08] MEDS: PANTOPRAZOLE 40 MG TABLET.DR. PO (08:17)
[2018-05-08] MEDS: FERROUS SULFATE 325 MG TABLET. PO (08:17)
[2018-05-08] MEDS: FENOFIBRATE,MICRONIZED 134 MG CAPSULE PO (08:17)
[2018-05-08] MEDS: LACTOBACILLUS RHAMNOSUS GG 1 CAPSULE. PO ×2 (08:17→21:11)
[2018-05-08] MEDS: ASPIRIN ENTERIC COATED 81 MG TABLET.DR. PO (08:18)
[2018-05-08] MEDS: GABAPENTIN 300 MG CAPSULE. PO (08:18)
[2018-05-08] MEDS: PARoxetine 20 MG TABLET PO (08:18)
[2018-05-08] MEDS: buPROPion 75 MG TABLET. PO ×2 (08:18→21:11)
[2018-05-08] MEDS: DONEPEZIL HCL 10 MG TABLET. PO (15:58)
[2018-05-08] MEDS: OMEGA-3 FATTY ACIDS/FISH OIL 1,000 MG CAPSULE. PO (15:58)
[2018-05-08] MEDS: cefTRIAXone IV Push 2 GM VIAL. IVP (15:58)
[2018-05-08] MEDS: tiZANidine 4 MG TABLET. PO (21:11)
[2018-05-09] MEDS: ONDANSETRON PF 4 MG/2 ML VIAL. IV (07:26)
[2018-05-09] MEDS: GABAPENTIN 300 MG CAPSULE. PO (08:24)
[2018-05-09] MEDS: FENOFIBRATE,MICRONIZED 134 MG CAPSULE PO (08:24)
[2018-05-09] MEDS: ASPIRIN ENTERIC COATED 81 MG TABLET.DR. PO (08:24)
[2018-05-09] MEDS: LACTOBACILLUS RHAMNOSUS GG 1 CAPSULE. PO (08:24)
[2018-05-09] MEDS: FERROUS SULFATE 325 MG TABLET. PO (08:25)
[2018-05-09] MEDS: buPROPion 75 MG TABLET. PO (08:25)
[2018-05-09] MEDS: PARoxetine 20 MG TABLET PO (08:25)
[2018-05-09] MEDS: PANTOPRAZOLE 40 MG TABLET.DR. PO (08:25)
[2018-05-09 13:44] LABS: HEMATOCRIT 32.8 % (36.0-47.0); HEMOGLOBIN 11.2 g/dL (12.0-15.5); MEAN CORPUSCULAR HEMOGLOBIN 32 pg (25-35); MEAN CORPUSCULAR HGB CONC 34 g/dL (31-37); MEAN CORPUSCULAR VOLUME 94 fL (79-100); PLATELET COUNT 289 x10^3/uL (140-400); RED BLOOD COUNT 3.49 x10^6/uL (3.50-5.40); WHITE BLOOD COUNT 5.8 x10^3/uL (4.0-11.0)
[2018-05-09 13:55] LABS: ANION GAP 8 (6-14); BLOOD UREA NITROGEN 9 mg/dL (7-20); CALCIUM 9.4 mg/dL (8.5-10.1); CARBON DIOXIDE 30 mmol/L (21-32); CHLORIDE 100 mmol/L (98-107); GFR 52.3; GLUCOSE 118 mg/dL (70-99); POTASSIUM 3.5 mmol/L (3.5-5.1); SODIUM 138 mmol/L (136-145)
[2018-05-09] MEDS: DONEPEZIL HCL 10 MG TABLET. PO (16:32)
[2018-05-09] MEDS: OMEGA-3 FATTY ACIDS/FISH OIL 1,000 MG CAPSULE. PO (16:32)
[2018-05-09] MEDS: cefTRIAXone IV Push 2 GM VIAL. IVP (16:32)
[2018-05-10] MEDS ORDERED: ERGOCALCIFEROL (VITAMIN D2) 50,000 UNIT CAPSULE. PO (09:00)
== END 2018-05-09 17:53 | DRG 871 ==
LOC: ER 03:44 → 5 SOUTH 05:30
DX: A41.51 Sepsis due to Escherichia coli [E. coli] (principal); G93.41 Metabolic encephalopathy; J96.01 Acute respiratory failure with hypoxia; I21.A1 Myocardial infarction type 2; N17.9 Acute kidney failure, unspecified; N12 Tubulo-interstitial nephritis, not specified as acute or chronic; I13.0 Hypertensive heart and chronic kidney disease with heart failure and stage 1 through stage 4 chronic kidney disease, or unspecified chronic kidney disease; E44.1 Mild protein-calorie malnutrition; R65.20 Severe sepsis without septic shock; K21.9 Gastro-esophageal reflux disease without esophagitis; E78.00 Pure hypercholesterolemia, unspecified; G89.29 Other chronic pain; E78.5 Hyperlipidemia, unspecified; G30.9 Alzheimer's disease, unspecified; F02.80 Dementia in other diseases classified elsewhere, unspecified severity, without behavioral disturbance, psychotic disturbance, mood disturbance, and anxiety; F32.9 Major depressive disorder, single episode, unspecified; M35.00 Sjogren syndrome, unspecified; E87.6 Hypokalemia; E83.42 Hypomagnesemia; N18.3 Chronic kidney disease, stage 3 (moderate); G62.9 Polyneuropathy, unspecified; I50.9 Heart failure, unspecified; E07.9 Disorder of thyroid, unspecified; M48.061 Spinal stenosis, lumbar region without neurogenic claudication; E66.01 Morbid (severe) obesity due to excess calories; M17.0 Bilateral primary osteoarthritis of knee; I25.10 Atherosclerotic heart disease of native coronary artery without angina pectoris; Z96.1 Presence of intraocular lens; Z96.652 Presence of left artificial knee joint; W18.39XA Other fall on same level, initial encounter; Y93.89 Activity, other specified; Y92.89 Other specified places as the place of occurrence of the external cause; Y99.8 Other external cause status; Z68.32 Body mass index [BMI] 32.0-32.9, adult; Z98.42 Cataract extraction status, left eye; Z98.41 Cataract extraction status, right eye; Z90.49 Acquired absence of other specified parts of digestive tract; Z85.3 Personal history of malignant neoplasm of breast; Z83.3 Family history of diabetes mellitus; Z80.9 Family history of malignant neoplasm, unspecified; Z86.14 Personal history of Methicillin resistant Staphylococcus aureus infection; Z90.711 Acquired absence of uterus with remaining cervical stump
CPT/HCPCS: 36415; 70450; 71045; 71046; 72125; 72131; 73502; 76770; 80048; 80053; 81001; 83605; 83690; 83735; 84443; 84484; 85007; 85025; 85027; 85610; 87040; 87086; 87205; 87641; 93005; 93306; 96361; 96365; 96368; 96375; 97110-GP; 97116-GP; 97162-GP; 97166-GO; 97530-GO; 97535-GO; 99285; 99285-25; J0696; J2310; J2405; J2543; J3370; J3475; J7030; J7040; J7050